=== PATIENT | male | born 1990 | race Two or more races ===

== ENCOUNTER 2024-06-17 07:57 | Emergency (ER) | payer OTHER, SELFPAY ==
--- NOTE | 2024-06-17 | ECG_ITS ---
Test Reason : S/p heart transplant Blood Pressure : */* mmHG Vent. Rate : 114 BPM Atrial Rate : * BPM P-R Int : * ms QRS Dur : 74 ms QT Int : 330 ms P-R-T Axes : * 39 42 degrees QTcB Int : 454 ms Atrial fibrillation with rapid ventricular response Minimal voltage criteria for LVH, may be normal variant ( Sokolow-Gomez ) Abnormal ECG No previous ECGs available Referred By: Generic ED Physician Electronically Signed By: MALLORIE KAUFFMAN MD
[2024-06-17 08:10] VITALS: BP 136/96; PULSE 78; RESP 16; TEMP 36.4; O2SAT 98; BMI 20.4
[2024-06-17 08:36] LABS: MANUAL DIFF FLAG NO
[2024-06-17 08:39] LABS: Basophils Percent Auto 0.5 % (0-2); Eosinophils Percent Auto 0.5 % (0-4); Hematocrit 48.7 % (42.0-52.0); Hemoglobin 16.8 g/dl (14.0-18.0); Imm Gran Abs Auto 0.01 X10*3/uL (0.00-0.03); Imm Gran Pct Auto 0.3 % (0.0-0.4); Lymphocytes Absolute Auto 1.8 X10*3/uL (1.2-4.9); Lymphocytes Percent Auto 46.6 % (20-40); Mean Corpuscular HGB Conc 34.5 g/dl (31.0-36.0); Mean Corpuscular Hemoglobin 33.4 pg (27.0-33.0); Mean Corpuscular Volume 96.8 fL (80.0-98.0); Mean Platelet Volume 10.4 fL (9.4-12.4); Monocytes Absolute Auto 0.4 X10*3/uL (0.1-1.2); Monocytes Percent Auto 10.9 % (2-11); Neutrophils Absolute Auto 1.6 x10*3/uL (2.0-8.3); Neutrophils Percent Auto 41.2 % (45-73); Platelet Count 188 X10*3/uL (160-400); Red Blood Count 5.03 X10*6/uL (4.60-5.80); Red Cell Distribution Width 11.9 % (11.0-16.0); White Blood Count 3.9 X10*3/uL (4.8-10.8)
[2024-06-17 08:57] LABS: B Type Natriuretic Peptide 26 pg/mL (<100)
[2024-06-17 08:58] LABS: Alanine Aminotransferase 46 U/L (0-40); Albumin Level 4.4 g/dL (3.5-5.0); Anion Gap 11 (12-20); Aspartate Amino Transferase 55 U/L (5-37); Blood Urea Nitrogen 19 mg/dL (9-16); Calcium 9.5 mg/dL (8.4-10.2); Carbon Dioxide 27 mmol/L (22-29); Chloride 104 mmol/L (96-108); Creatinine Clr Calc Pharmacy 73.7; Estimated Glomerular Filt Rate > 60; Glucose Random 92 mg/dL (60-115); Potassium 4.3 mmol/L (3.3-5.1); Sodium 138 mmol/L (135-145); Total Protein 8.5 g/dL (6.5-8.0)
[2024-06-17 08:59] LABS: Troponin-I High Sensitivity < 2.7 ng/L (<3.5-35.0)
--- NOTE | 2024-06-17 09:05 | ED.GENADULT ---
HPI - General Adult General Chief complaint: General Medical Stated complaint: gen med Time Seen by Provider: 06/17/24 09:05 Source: patient and educational interpreter (All interactions with this patient were facilitated with an [facility] [place] Creole educational interpreter) Mode of arrival: ambulatory Limitations: language barrier (All interactions with this patient were facilitated with an [facility] [place] Creole educational interpreter) History of Present Illness ED Provider: Herminia Christian PA-C HPI narrative: Patient is a 34 year old assigned male at with a history of cardiac transplant and mechanical valve placement that occurred in [facility] in 2022, presenting to the emergency department today request a check up on his heart. Patient states that he had a heart transplant 2 years ago in [facility] and also had a mechanical valve placed. Patient states that he has been out of all of his medications for at least a month and he is coming here for refills and a check up of his heart. Patient states that he has not established with a transplant specialist since being in the [facility] [place]. Patient denies any history of irregular heartbeats / rhythms. Patient denies any dizziness, lightheadedness, abdominal pain, nausea, vomiting, fever, chills, blurry vision, double vision, loss of vision, chest pain, difficulty breathing, shortness of breath, back pain, night sweats, pain with urination, increased urinary frequency, increased urinary urgency, blood in his urine or stool, syncope or a near syncopal episode, recent trauma or falls, bowel incontinence, bladder incontinence, or any other complaints at this time. Relieving factors: none Exacerbating factors: none Associated symptoms: denies other symptoms Treatments prior to arrival: none Related Data Allergies Allergy/AdvReac Type Severity Reaction Status Date / Time No Known Allergies Allergy Verified 06/17/24 08:14 Review of Systems Constitutional: Constitutional: Reports no additional constitutional complaints, Denies chills, Denies fever(s) and Denies night sweats Eyes: Eyes: Reports no additional eye complaints, Denies blurry vision, Denies change in vision, Denies diplopia, Denies eye discharge, Denies loss of vision and Denies eye pain ENT: Denies dizziness Cardiovascular: Cardiovascular: Reports no additional cardiovascular complaints, Denies chest pain, Denies lightheadedness, Denies Loss of Consciousness and Denies dyspnea Respiratory: Respiratory: Reports no additional respiratory complaints and Denies dyspnea Gastrointestinal: Gastrointestinal: Reports no additional gastrointestinal complaints, Denies abdominal pain, Denies melena, Denies hematochezia, Denies change in bowel habits and Denies change in stool character Genitourinary: Genitourinary: Reports no additional male genitourinary complaints, Denies hematuria, Denies oliguria, Denies difficulty urinating, Denies dysuria, Denies urinary frequency, Denies urinary hesitancy, Denies urinary incontinence and Denies urinary urgency Musculoskeletal: Musculoskeletal: Reports no additional musculoskeletal complaints, Denies numbness and Denies tingling Neurologic: Denies dizziness, Denies loss of vision, Denies numbness and Denies tingling Psychiatric: Psychiatric: Reports no additional psychiatric complaints Endocrine: Endocrine: Reports no additional endocrine complaints Hematologic/Lymphatic: Hematologic/Lymphatic: Reports no additional hematologic/lymphatic complaints Allergic/Immunologic: Allergic/Immunologic: Reports no additional allergic/immunologic complaints [facility] Past Medical History Attestation statement: The following information was validated with the patient. Source: old records reviewed and nursing notes reviewed Social History Social History Advance Directives: No Advance Directives Information Provided: No Do you have a plan to hurt others: No Plan Physical Exam ED Vital Signs: Vital Signs - 24 hr 06/17/24 08:10 06/17/24 12:20 Temperature 97.5 F 98.3 F Pulse Rate 78 105 H Respiratory Rate 16 19 Blood Pressure 136/96 H 117/84 Pulse Oximetry 98 100 Oxygen Delivery Method Room Air Room Air BMI result Body Mass Index 20.4 Const General: cooperative, no acute distress, alert and awake Nutritional Appearance: well nourished Orientation/consciousness: patient oriented x3 Limitations: no limitations [facility] Head: Yes normal to inspection and Yes atraumatic Ears: hearing grossly normal bilaterally and external ears normal General nose exam: Normal external nose present, no nasal discharge noted and no epistaxis Face and sinus: Yes normal facial exam, No abrasion and No laceration Mouth: Normal oral and palatal mucosa present, no drooling and no muffled voice Eyes General: appearance normal, both eyes and all related structures Periorbital: periorbital findings normal Eyelids: Yes eyelids normal Conjunctivae: conjunctivae normal Pupils: Equal, round and reactive pupils present EOM: EOMs intact bilaterally Neck Neck: Yes normal visual inspection, Yes full ROM and Yes no lymphadenopathy Chest Other: large scar in center chest - presumably from transplant Resp Effort & Inspection: normal respiratory effort and able to speak in complete sentences Cardio Other: mechanical valve clicking Rhythm: abnormal rhythm irregularly irregular GI Inspection: Yes normal to inspection Neuro General: patient oriented x3 and moves all extremities Cranial nerves: Yes Equal, round and reactive pupils present Cognition (Neuro): normal cognition Extrem General: Yes normal to inspection, Yes full ROM and Yes capillary refill normal Psych Appearance: grossly normal Mental Status: mental status grossly normal Affect: normal affect Attitude: cooperative Thought process: Normal thought process present Thought content: Normal thought content present Insight: Good insight present (Psych) Medical Decision Making Medical Decision Making MDM Narrative: Patient is a 34 year old assigned male at with a history of cardiac transplant and mechanical valve placement that occurred in [facility] in 2022, presenting to the emergency department today request a check up on his heart. Patient's physical exam was as noted in the physical exam portion of this note. Patient's blood work was unremarkable. Patient's initial EKG showed atrial fibrillation with RVR however, the patient's heart rate has since been stable under 100bpm. I spoke with my attending physician, Dr. Cuadra, who recommended transfer to a transplant center. I called and spoke to the [facility] transfer line who declined. I spoke to [facility] who accepted the patient to their ER. Dr. Rita Bullock accepting. I explained my physical exam findings as well as all test results to the patient. I answered all questions asked by the patient. Patient verbalized agreement and understanding with this treatment plan and transfer to [facility] ED. Differential Diagnosis Differential Diagnoses: The differential diagnosis associated with the presentation includes Heart transplant Medication non-compliance New atrial fibrillation New atrial fibrillation with RVR Admission/Observation Consideration of admission/observation: Escalation of care including admission/observation considered Patient to be transferred to the [facility] ER. Consult Healthcare Provider Management of the patient was discussed with: Pulp Tester (spoke to the [facility] Cardiac team as noted in the MDM Rationale portion of this note.) Lab Data [facility] Lab Attestation statement: I reviewed the patient's lab results. My interpretation of these results are in the MDM Rationale portion of this note. 06/17/24 08:31 06/17/24 08:31 Labs: Lab Results 06/17/24 Range/Units 08:31 WBC 3.9 L (4.8-10.8) X10*3/uL RBC 5.03 (4.60-5.80) X10*6/uL Hgb 16.8 (14.0-18.0) g/dl Hct 48.7 (42.0-52.0) % MCV 96.8 (80.0-98.0) fL MCH 33.4 H (27.0-33.0) pg MCHC 34.5 (31.0-36.0) g/dl RDW 11.9 (11.0-16.0) % Plt Count 188 (160-400) X10*3/uL MPV 10.4 (9.4-12.4) fL Immature Gran % (Auto) 0.3 (0.0-0.4) % Neut % (Auto) 41.2 L (45-73) % Lymph % (Auto) 46.6 H (20-40) % [place] % (Auto) 10.9 (2-11) % Eos % (Auto) 0.5 (0-4) % Baso % (Auto) 0.5 (0-2) % Lymph # (Auto) 1.8 (1.2-4.9) X10*3/uL [place] # (Auto) 0.4 (0.1-1.2) X10*3/uL Eos # (Auto) 0.0 (0.0-0.4) X10*3/uL Baso # (Auto) 0.0 (0.0-0.2) X10*3/uL Abs Immat Gran (auto) 0.01 (0.00-0.03) X10*3/uL Absolute Neuts (auto) 1.6 L (2.0-8.3) x10*3/uL Absolute Nucleated RBC 0.000 (0.0-0.012) X10*3/uL Nucleated RBC % (auto) 0.0 (0.0-0.2) /100WBC Sodium 138 (135-145) mmol/L Potassium 4.3 (3.3-5.1) mmol/L Chloride 104 (96-108) mmol/L Carbon Dioxide 27 (22-29) mmol/L Anion Gap 11 L (12-20) BUN 19 H (9-16) mg/dL Creatinine 1.05 (0.5-1.4) mg/dL Estim Creat Clear Calc 73.7 Estimated GFR > 60 Random Glucose 92 (60-115) mg/dL Calcium 9.5 (8.4-10.2) mg/dL Total Bilirubin 2.0 H (0.0-1.0) mg/dL AST 55 H (5-37) U/L ALT 46 H (0-40) U/L Troponin I High Sens < 2.7 (<3.5-35.0) ng/L B-Natriuretic Peptide 26 (<100) pg/mL Total Protein 8.5 H (6.5-8.0) g/dL Albumin 4.4 (3.5-5.0) g/dL Independent Interpretation I performed an independent interpretation of an: EKG Interpretation: I independently interpreted this EKG and am in agreement with the below findings: Vent. Rate: 114 BPM Atrial Rate: * BPM P-R Int: * ms QRS Dur: 74 ms QT Int: 330 ms P-R-T Axes: * 39 42 degrees QTcB Int: 454 ms Atrial fibrillation with rapid ventricular response Minimal voltage criteria for LVH, may be normal variant (Sokolow-Gomez) No previous ECGs available Electronically Signed By: UMESH KAUFFMAN MD Dictated By: Umesh Kauffman MD Signed By: Electronically signed by Umesh Kauffman MD 06/17/24 1058 Critical Care Time Critical Care Time Critical Care Time: Yes Total Critical Care Time: 38 Attestation: I spent 38 minutes of Critical Care Time with this patient. This does not include time spent on separately reported billable procedures. Discharge Plan Discharge Clinical Impression: Atrial fibrillation, Heart transplant recipient Patient Disposition: Xfer Acute [facility] Transfer Details: [facility] ER Print Language: Moz[place]
[2024-06-17 12:20] VITALS: BP 117/84; PULSE 105; RESP 19; TEMP 36.8; O2SAT 100
--- NOTE | 2024-06-17 12:49 | PC.NURSE ---
pt is alert and oriented, skin appropriate for ethnicity, respirations even and unlabored, pt denies pain, pt is currently in a-fib ranging from 105-122 at this time, no hx of a-fib, pt did have a heart transplant 2 years ago in [place] and just moved over to the [facility] and has no follow up
[2024-06-17 13:03] VITALS: PULSE 100
--- NOTE | 2024-06-17 13:40 | PC.NURSE ---
report given to ela at [facility]
[2024-06-17 13:47] VITALS: BP 117/58; PULSE 100; RESP 20; TEMP -17.7; TEMP 0; O2SAT 98
[2024-06-17 14:08] LABS: Alkaline Phosphatase 85 U/L (39-117)
== END 2024-06-17 13:49 | disposition short-term general hospital (02) ==
PROVIDERS: Emergency Provider Emergency Medicine
DX: I48.91 Unspecified atrial fibrillation (principal); R06.02 Shortness of breath; Z79.899 Other long term (current) drug therapy; Z94.1 Heart transplant status
CPT/HCPCS: 36415; 80053; 83880; 84484; 85025; 93005; 99285

== ENCOUNTER → 2024-06-17 08:23 | Outpatient (BNV) | payer OTHER, SELFPAY | PROVIDERS: Emergency Provider Emergency Medicine; Visit Provider Internal Medicine Cardiovascular Disease | DX: I48.91 Unspecified atrial fibrillation (principal) | CPT/HCPCS: 93010 ==

== ENCOUNTER 2024-09-19 15:11 | Outpatient (AMB) | payer OTHER, SELFPAY ==
--- NOTE | 2024-09-19 15:18 | A.OFFPC_ITS ---
Vital Signs 09/19/24 15:23 Height 5 ft 3 in Weight 121 lb BMI 21.4 BP 122/82 Blood Pressure Location Lt brachial Position Sitting Pulse 61 Pulse Source Pulse Oximeter Pulse Oximetry (%) 99 Oxygen Delivery Method Room Air Intake Visit Reasons: Establish care Intake Note: Patient is a new patient here to establish care for [symptoms]. Transferring ca re from [provider name]. Medical records [have/have not] been requested and [ have/have not] received. Condominium Association Manager Required: Yes Condominium Association Manager Language: Icelandic Creole Condominium Association Manager Name: [id number] Hot Die Press Feeder: Not Required per policy Accompanied by: Self / Same As Patient Allergies No Known Allergies Allergy (Verified 09/19/24 15:35) Medication List - Last Reconciled 09/19/24 by MICHAEL Smith aspirin (Adult Low Dose Aspirin) 81 mg PO DAILY metoprolol tartrate 50 mg PO DAILY spironolactone 25 mg PO DAILY warfarin 6 mg PO DAILY warfarin 4 mg PO DAILY Tobacco use date assessed: 09/19/24 Dental Screening Dental Screen Date: 09/19/24 Did you have a dental visit in the last 12 months?: No Did you have a dental problem in the last 6 months where you did not have access to dental care?: No Was dental information given to patient?: No HPI Establish care HPI Details The patient is presenting to establish care, Ruby Alberto speaking. Condominium Association Manager used via IPAD Previous PCP: no Last visit: unsure Last PE: same Specialist: emergency nurse,(in [facility], he is not sure of the name) OBGYN:n/a Past medical history: Valve replacement when he was a child in [facility] Medications: Family HX: no Problem: The patient reports that he as sent here, but he is not sure why Reports that he had an headache, got some medication and after that he was feeling well The patient is a 34-year-old male presenting with atrial fibrillation. He has hypertension and uses Coumadin for anticoagulation therapy resulting from a heart valve replacement. The patient mentions he is aware of the risk of clotting and the purpose of Coumadin in preventing such complications. He confirms his latest blood work was conducted one week ago to monitor the anticoagulation therapy. He denies experiencing chest pain, dizziness, or joint pain, which might complicate his current conditions. The patient continues on Metoprolol and spironolactone to manage his hypertension, with refills available. The patient thinks that he was sent for possible a general exam. Reports he had an x-ray last Thursday but not sure for what doctor or for what reason He thinks that it was probably for the heart doctor Patient denies shortness of breath, chest pain, heart palpitation Denies abdominal pain or change in bowel habits, denies urinary symptoms PFSH Medical History Atrial fibrillation Surgical History Mechanical heart valve present Family History Mother No problems noted. Father No problems noted. Brother No problems noted. Sister No problems noted. Daughter No problems noted. Social History Housing: Homeless (Skilled Nursing) Alcohol intake: never Patient Tobacco Use Status: Never used Tobacco Tobacco use type: Cigarette e-Cigarette/Vaping Use: Never Used Second Hand Smoke Exposure: No service: No Current occupational status: unemployed Current occupational exposures/hazards: No Cognitive needs: No Hearing needs: No Vision needs: No Questionnaire PHQ-9 Over the last 2 weeks, how often have you been bothered by any of the following problems? 1. Little interest or pleasure in doing things: several days 2. Feeling down, depressed, or hopeless: not at all 3. Trouble falling or staying asleep, or sleeping too much: more than half the days 4. Feeling tired or having little energy: not at all 5. Poor appetite or overeating: not at all 6. Feeling bad about yourself - or that you are a failure or have let yourself or your family down: not at all 7. Trouble concentrating on things, such as reading the newspaper or watching television: not at all 8. Moving or speaking so slowly that other people could have noticed. Or the opposite - being so fidgety or restless that you have been moving around a lot more than usual: not at all 9. Thoughts that you would be better off or of hurting yourself in some way: not at all Total score: 3 Depression Screening Interpretation: Positive Depression Screening Done: Yes 45188 - PHQ-9 Billing: Yes Source: Developed by Drs. Feliciano Lopes, Ninfa Osorio, Niko Smith and colleagues, with an educational lourdes from [employer]. Thrive Questionnaire Date Thrive assessed: 09/19/24 I am a: Patient What is your living situation today?: I do not have a steady places to live I am staying at a detention Within the past 12 months, did the food you bought not last and you didn't have the money to get more?: I choose not to answer this question Within the past 12 months, did you worry whether your food would run out before you got money to buy more?: I choose not to answer this question Do you have trouble paying for medicines?: No Do you have trouble getting transportation to medical appointments?: No Do you have trouble paying your heating and electricity bill?: I choose not to answer this question Do you have trouble taking care of your child, family member or friend?: I choose not to answer this question Do you have trouble with day-to-day activities such as bathing, preparing meals, shopping, managing finances, etc.?: No Are you currently unemployed and looking for a job?: Yes Are you interested in more education?: Yes Please select the resources that you would like help with: Job search/training Currently or been in a relationship where the following occur: I choose not to answer THRIVE Score: 1 AUDIT C Alcohol Use Questionnaire (AUDIT-C) 1. How often do you have a drink containing alcohol?: Never Total Score: 0 REN-7 AMB Questionnaire REN-7 Date REN - 7 assessed: 09/19/24 Feeling nervous, anxious, or on edge: 0 = Not at all Not being able to stop or control worryin = Not at all Worrying too much about different things: 0 = Not at all Trouble relaxin = Not at all Being so restless that it is hard to sit still: 0 = Not at all Becoming easily annoyed or irritable: 0 = Not at all Feeling afraid as if something awful might happen: 0 = Not at all Total REN-7 score (0-4 normal; 5-9 mild; 10-14 moderate; 15-21 severe): 0 Source: Developed by Drs. Feliciano Lopes, Ninfa Osorio, Niko Smith and colleagues, with an educational lourdes from [employer]. REN-7 Assessment Billing REN-7 Assessment Tool: REN-7 Assessment 46053 Review of Systems Const Reports headache(s) (Reports taking medications and this resolved) Eyes Denies loss of vision ENT Denies vertigo, Denies dizziness, Reports headache(s) (Reports taking medications and this resolved) and Denies sore throat Card Denies chest pain, Reports irregular heart rhythm, Denies leg edema and Denies lightheadedness Resp Denies cough, Denies hemoptysis and Denies wheezing GI Denies abdominal pain, Denies melena, Denies constipation, Denies diarrhea and Denies vomiting Denies dysuria, Denies urinary frequency and Denies urinary urgency Musc Denies arthralgias, Denies joint swelling, Denies numbness and Denies tingling Neuro Denies Abnormal speech present, Denies behavioral changes, Denies vertigo, Denies dizziness, Reports headache(s) (Reports taking medications and this resolved), Denies loss of vision, Denies memory loss, Denies numbness and Denies tingling Psych Denies anxiety, Denies behavioral changes, Denies depression, Denies memory loss and Denies panic attacks Nikita/Lymph Reports easy bleeding (Coumadin usage) and Denies easy bruising Aller/Immun Denies wheezing Physical exam (Primary Care) Vital Signs: Last Vital Signs Pulse 61 09/19/24 15:23 BP 122/82 09/19/24 15:23 Pulse Ox 99 09/19/24 15:23 Oxygen Delivery Method Room Air 09/19/24 15:23 BMI result Body Mass Index 21.4 Tobacco/Smoking Status: Tobacco use Status Tobacco use date assessed 09/19/24 09/19/24 15:32 Patient Tobacco Use Status Never used Tobacco 09/19/24 15:32 Tobacco use type Cigarette 09/19/24 15:32 e-Cigarette/Vaping Use Never Used 09/19/24 15:32 PHQ-9: PHQ-9 Score PHQ-9: Total score 3 09/20/24 12:20 Depression Screening Interpretation: Positive Thrive Assessment: Date of Thrive Assessment Date Thrive assessed 09/19/24 09/19/24 15:32 Currently or been in a relationship where the following occur: I choose not to answer Const General: healthy appearing, no acute distress, alert and awake Nutritional Appearance: well nourished Orientation/consciousness: oriented to person, oriented to place and oriented to time HENMT Ears: TM's normal bilaterally General nose exam: Normal nasal mucous membranes and turbinates present Eyes Conjunctivae: conjunctivae normal Sclerae: sclerae normal Pupils: Equal, round and reactive pupils present Neck Neck: Yes no lymphadenopathy and Yes no JVD Thyroid: Thyroid normal Carotids: no bruits Resp Effort & Inspection: normal respiratory effort and not tachypneic Auscultation: no crackles, no rales, no rhonchi and no wheezes Cardio Rate: regular rate Rhythm: abnormal rhythm irregularly irregular Heart sounds: no murmurs and normal S1 and S2 GI Palpation (GI): Soft to palpation, nontender, no hepatomegaly and no splenomegaly Auscultation: normal bowel sounds Skin General skin exam: no rashes or lesions noted and dry skin Hair: male pattern alopecia Neuro General: oriented to person, oriented to place and oriented to time Cranial nerves: Yes Equal, round and reactive pupils present Speech: No Abnormal speech present Gait exam (Neuro): Normal gait present Motor exam (neuro): no tremor noted Extrem Right upper extremity: full ROM Left upper extremity: full ROM Right lower extremity: full ROM; no edema Left lower extremity: full ROM; no edema Psych Mental Status: mental status grossly normal Speech and movement: Normal speech and movement present Affect: normal affect Attitude: cooperative Thought process: Normal thought process present Coding Level of Care Code New Pt Level 4 (06205) Diagnoses Atrial fibrillation, unspecified type I48.91 Atrial fibrillation type: unspecified Mechanical heart valve present Z95.2 Hypertension, unspecified type I10 Hypertension type: unspecified Additional Codes REN-7 Assessment Billing - REN-7 Assessment Tool: REN-7 Assessment 26932 ([id number]) PHQ-9 - 33257 - PHQ-9 Billing: Yes ([id number]) Time Spent (min) 43 Assessment & Plan Assessment & Plan (1) Atrial fibrillation: Code(s): I48.91 - Unspecified atrial fibrillation Category: Medical Qualifiers: Atrial fibrillation type: unspecified Qualified Code(s): I48.91 - Unspecified atrial fibrillation (2) Mechanical heart valve present: Code(s): Z95.2 - Presence of prosthetic heart valve Category: Surgical (3) HTN (hypertension): Code(s): I10 - Essential (primary) hypertension Category: Medical Qualifiers: Hypertension type: unspecified Qualified Code(s): I10 - Essential (primary) hypertension Plan The patient should continue his current Coumadin therapy for anticoagulation, ensuring regular INR monitoring to prevent complications associated with his heart valve condition. Avoid green leafy vegetables, possible interaction with Coumadin. Additionally, Metoprolol and spironolactone should be continued for managing his hypertension. Encouraged low-salt diet. The importance of medication adherence was discussed, with a focus on potential side effects and when to seek further medical attention. Upcoming blood work should include fasting tests to evaluate cholesterol among other parameters. And and Patient was informed and verbally consented to the use of an ambient scribe for clinic note documentation during this visit. Orders: Orders UA CC w/rflx Micro + Cult 09/19/24 I48.91 - Unspecified atrial fibrillation, Z00.00 - Encounter for general adult medical examination without abnormal findings Vitamin D 25-OH Total 09/19/24 I48.91 - Unspecified atrial fibrillation, Z00.00 - Encounter for general adult medical examination without abnormal findings Glucose Fasting 09/19/24 I48.91 - Unspecified atrial fibrillation, Z00.00 - Encounter for general adult medical examination without abnormal findings B Type Natriuretic Peptide 09/19/24 I48.91 - Unspecified atrial fibrillation, Z00.00 - Encounter for general adult medical examination without abnormal findings Complete Blood Count Auto Diff 09/19/24 I48.91 - Unspecified atrial fibrillation, Z00.00 - Encounter for general adult medical examination without abnormal findings Comprehensive Winder. Panel Fast 09/19/24 I48.91 - Unspecified atrial fibrillation, Z00.00 - Encounter for general adult medical examination without abnormal findings TSH reflex Free T4 09/19/24 I48.91 - Unspecified atrial fibrillation, Z00.00 - Encounter for general adult medical examination without abnormal findings Patient Instructions: - Continue taking Coumadin daily as directed - Maintain regular INR testing for medication monitoring - Keep taking Metoprolol and spironolactone for blood pressure control - Schedule fasting blood tests for cholesterol levels - Seek prompt care if experiencing unusual bleeding or prolonged heart palpitations - Follow up in 6 weeks to review lab results and progress
[2024-09-19 15:23] VITALS: BP 122/82; PULSE 61; O2SAT 99; BMI 21.4
== END 2024-09-19 16:12 | disposition home or self-care (01) ==
LOC: HO.HMCH 15:11
DX: I48.91 Unspecified atrial fibrillation (principal); Z95.2 Presence of prosthetic heart valve; I10 Essential (primary) hypertension

== ENCOUNTER → 2024-09-19 15:11 | Outpatient (BNVA) | payer OTHER, SELFPAY | DX: I48.91 Unspecified atrial fibrillation (principal); I10 Essential (primary) hypertension; Z95.2 Presence of prosthetic heart valve; Z79.01 Long term (current) use of anticoagulants; Z79.899 Other long term (current) drug therapy | CPT/HCPCS: 96127; 99202 ==

== ENCOUNTER 2024-11-08 09:52 | Outpatient (AMB) | payer OTHER, SELFPAY ==
--- NOTE | 2024-11-08 09:55 | A.OFFPC_ITS ---
Vital Signs 11/08/24 09:57 Height 5 ft 3 in Weight 119 lb 12.8 oz BMI 21.2 BP 114/86 Blood Pressure Location Lt brachial Position Sitting Respiration 16 Pulse 108 H Pulse Source Pulse Oximeter Temp 97.6 F Temp Source Oral Pulse Oximetry (%) 99 Oxygen Delivery Method Room Air Intake Visit Reasons: 6 week f/u- repeat PHQ9 W/ provider interpretation Principal Statistical Programmer Required: Yes Principal Statistical Programmer Language: Icelandic Creole Principal Statistical Programmer Name: Used tablet: Samuel [id number] Accompanied by: Spouse Allergies No Known Allergies Allergy (Verified 11/08/24 10:12) Medication List - Last Reconciled 11/08/24 by MICHAEL Smith aspirin (Adult Low Dose Aspirin) 81 mg PO DAILY metoprolol tartrate 50 mg (2 x 25 mg) PO DAILY spironolactone 25 mg PO DAILY warfarin 6 mg PO DAILY warfarin 4 mg PO DAILY Tobacco use date assessed: 11/08/24 Dental Screening Dental Screen Date: 11/08/24 Did you have a dental visit in the last 12 months?: Yes Did you have a dental problem in the last 6 months where you did not have access to dental care?: No Was dental information given to patient?: Patient has dentist HPI 6 week f/u- repeat PHQ9 W/ provider interpretation HPI Details The patient 34 male Icelandic Creole speaking with significant past medical history of mechanical heart valve, HTN, afib on Coumadin. Second time meeting the patient. Labs were ordered on his 1st visit to further evaluate The patient did not complete the blood work as yet. Reports that he was not sure when this was supposed to get done Reports that he was going to the coumadin clinic every 2 weeks, now, he is going every 3 weeks Denies chest pain, SOB, heart palpitation or dizziness No abdominal pain or change in bowel habits Denies urinary symptoms [facility] Medical History (Updated 11/25/24 @ 22:42 by MICHAEL Smith) Non-ischemic cardiomyopathy HTN (hypertension) Atrial fibrillation Surgical History Mechanical heart valve present Family History Mother No problems noted. Father No problems noted. Brother No problems noted. Sister No problems noted. Daughter No problems noted. Social History Housing: Homeless (Penitentiary) Alcohol intake: never Patient Tobacco Use Status: Never used Tobacco Tobacco use type: Cigarette e-Cigarette/Vaping Use: Never Used Second Hand Smoke Exposure: No service: No Current occupational status: unemployed Current occupational exposures/hazards: No Cognitive needs: No Hearing needs: No Vision needs: No Questionnaire PHQ-9 Over the last 2 weeks, how often have you been bothered by any of the following problems? 1. Little interest or pleasure in doing things: not at all 2. Feeling down, depressed, or hopeless: not at all 3. Trouble falling or staying asleep, or sleeping too much: nearly every day 4. Feeling tired or having little energy: more than half the days 5. Poor appetite or overeating: not at all 6. Feeling bad about yourself - or that you are a failure or have let yourself or your family down: not at all 7. Trouble concentrating on things, such as reading the newspaper or watching television: not at all 8. Moving or speaking so slowly that other people could have noticed. Or the opposite - being so fidgety or restless that you have been moving around a lot more than usual: not at all 9. Thoughts that you would be better off or of hurting yourself in some way: not at all Total score: 5 Depression Screening Interpretation: Negative Depression Screening Done: Yes 77411 - PHQ-9 Billing: Yes Source: Developed by Drs. Feliciano Lopes, Ninfa Osorio, Niko Smith and colleagues, with an educational lourdes from [email or web address]. Thrive Questionnaire Date Thrive assessed: 11/08/24 I am a: Patient What is your living situation today?: I do not have a steady places to live I am staying at a fci Within the past 12 months, did the food you bought not last and you didn't have the money to get more?: I choose not to answer this question Within the past 12 months, did you worry whether your food would run out before you got money to buy more?: I choose not to answer this question Do you have trouble paying for medicines?: No Do you have trouble getting transportation to medical appointments?: No Do you have trouble paying your heating and electricity bill?: I choose not to answer this question Do you have trouble taking care of your child, family member or friend?: I choose not to answer this question Do you have trouble with day-to-day activities such as bathing, preparing meals, shopping, managing finances, etc.?: No Are you currently unemployed and looking for a job?: Yes Are you interested in more education?: Yes Please select the resources that you would like help with: Job search/training Currently or been in a relationship where the following occur: I choose not to answer THRIVE Score: 1 AUDIT C Alcohol Use Questionnaire (AUDIT-C) 1. How often do you have a drink containing alcohol?: Never Total Score: 0 Score Reviewed/Action Taken: No REN-7 AMB Questionnaire REN-7 Date REN - 7 assessed: 09/19/24 Source: Developed by Drs. Feliciano Lopes, Ninfa Osorio, Niko Smith and colleagues, with an educational lourdes from [email or web address]. Review of Systems Const Denies headache(s) Eyes Denies loss of vision ENT Denies vertigo, Denies dizziness, Denies headache(s) and Denies sore throat Card Denies chest pain, Denies leg edema and Denies lightheadedness Resp Denies cough, Denies hemoptysis and Denies wheezing GI Denies abdominal pain, Denies melena, Reports constipation (going every 2-3 days), Denies diarrhea and Denies vomiting Denies dysuria, Denies urinary frequency and Denies urinary urgency Musc Denies arthralgias, Denies joint swelling, Denies numbness and Denies tingling Neuro Denies Abnormal speech present, Denies behavioral changes, Denies vertigo, Denies dizziness, Denies headache(s), Denies loss of vision, Denies memory loss, Denies numbness and Denies tingling Psych Denies anxiety, Denies behavioral changes, Denies depression, Denies memory loss and Denies panic attacks Nikita/Lymph Denies easy bleeding and Denies easy bruising Aller/Immun Denies wheezing Physical exam (Primary Care) Vital Signs: Last Vital Signs Temp 97.6 F 11/08/24 09:57 Pulse 108 H 11/08/24 09:57 Resp 16 11/08/24 09:57 BP 114/86 11/08/24 09:57 Pulse Ox 99 11/08/24 09:57 Oxygen Delivery Method Room Air 11/08/24 09:57 BMI result Body Mass Index 21.2 Tobacco/Smoking Status: Tobacco use Status Tobacco use date assessed 11/08/24 11/08/24 10:10 Patient Tobacco Use Status Never used Tobacco 11/08/24 10:10 Tobacco use type Cigarette 11/08/24 10:10 e-Cigarette/Vaping Use Never Used 11/08/24 10:10 PHQ-9: PHQ-9 Score PHQ-9: Total score 5 11/08/24 10:19 Depression Screening Interpretation: Negative Thrive Assessment: Date of Thrive Assessment Date Thrive assessed 11/08/24 11/08/24 10:10 Currently or been in a relationship where the following occur: I choose not to answer Const General: healthy appearing, no acute distress, alert and awake Nutritional Appearance: well nourished Orientation/consciousness: oriented to person, oriented to place and oriented to time HENMT Ears: TM's normal bilaterally General nose exam: Normal nasal mucous membranes and turbinates present Eyes Conjunctivae: conjunctivae normal Sclerae: sclerae normal Pupils: Equal, round and reactive pupils present Neck Neck: Yes no lymphadenopathy and Yes no JVD Thyroid: Thyroid normal Carotids: no bruits Resp Effort & Inspection: normal respiratory effort and not tachypneic Auscultation: no crackles, no rales, no rhonchi and no wheezes Cardio Rate: tachycardic Rhythm: abnormal rhythm regularly irregular Heart sounds: no murmurs and normal S1 and S2 GI Palpation (GI): Soft to palpation, nontender, no hepatomegaly and no splenomegaly Auscultation: normal bowel sounds Skin General skin exam: no rashes or lesions noted and dry skin Neuro General: oriented to person, oriented to place and oriented to time Cranial nerves: Yes Equal, round and reactive pupils present Speech: No Abnormal speech present Gait exam (Neuro): Normal gait present Motor exam (neuro): no tremor noted Extrem Right upper extremity: full ROM Left upper extremity: full ROM Right lower extremity: full ROM; no edema Left lower extremity: full ROM; no edema Psych Mental Status: mental status grossly normal Speech and movement: Normal speech and movement present Affect: normal affect Attitude: cooperative Thought process: Normal thought process present Coding Level of Care Code Est Pt Level 3 (49048) Diagnoses Atrial fibrillation, unspecified type I48.91 Atrial fibrillation type: unspecified Mechanical heart valve present Z95.2 Hypertension, unspecified type I10 Hypertension type: unspecified Non-ischemic cardiomyopathy I42.8 Elevated liver enzymes R74.8 Additional Codes PHQ-9 - 26753 - PHQ-9 Billing: Yes ([id number]) Time Spent (min) 37 Assessment & Plan Assessment & Plan (1) Atrial fibrillation: Code(s): I48.91 - Unspecified atrial fibrillation Category: Medical Qualifiers: Atrial fibrillation type: unspecified Qualified Code(s): I48.91 - Unspecified atrial fibrillation Plan: Patient has a history of AFib. Rate uncontrolled, but blood pressure is 114/86. He is currently on metoprolol tartrate 50 mg. The patient is asymptomatic. No interventions added. Follow up with Cardiology as scheduled (2) Mechanical heart valve present: Code(s): Z95.2 - Presence of prosthetic heart valve Category: Surgical Plan: History of mechanical valve. Continue warfarin as ordered Follow up with Coumadin clinic as scheduled (3) HTN (hypertension): Code(s): I10 - Essential (primary) hypertension Category: Medical Qualifiers: Hypertension type: unspecified Qualified Code(s): I10 - Essential (primary) hypertension Plan: Reinforced low-salt diet Continue metoprolol tartrate 50 mg daily, spironolactone 25 mg daily (4) Non-ischemic cardiomyopathy: Code(s): I42.8 - Other cardiomyopathies Category: Medical Plan: Recent echo showed normal function mitral valve with mean gradient 3 mm Hg at 75 bpm with no evidence of MR. Moderate global hypokinesis of the left ventricle with LVEF of 35-40% Continue spironolactone 25 mg daily and metoprolol tartrate 50 mg daily Follow up with Cardiology as scheduled (5) Elevated liver enzymes: Code(s): R74.8 - Abnormal levels of other serum enzymes Category: Medical Plan: Patient liver enzymes were elevated on his previous labs in May. He has not completed his preordered labs as yet. Encouraged limit Tylenol/limit alcohol/use
[2024-11-08 09:57] VITALS: BP 114/86; PULSE 108; RESP 16; TEMP 36.4; O2SAT 99; BMI 21.2
== END 2024-11-08 10:30 | disposition home or self-care (01) ==
LOC: HO.HMCH 09:53
DX: I48.91 Unspecified atrial fibrillation (principal); Z95.2 Presence of prosthetic heart valve; I10 Essential (primary) hypertension; I42.8 Other cardiomyopathies; R74.8 Abnormal levels of other serum enzymes

== ENCOUNTER → 2024-11-08 09:52 | Outpatient (BNVA) | payer OTHER, SELFPAY | DX: I10 Essential (primary) hypertension (principal); I48.91 Unspecified atrial fibrillation; I42.8 Other cardiomyopathies; R74.8 Abnormal levels of other serum enzymes; Z95.2 Presence of prosthetic heart valve; Z79.01 Long term (current) use of anticoagulants | CPT/HCPCS: 96127; 99212 ==

== ENCOUNTER 2024-12-16 05:42 | Emergency (ER) | payer OTHER, SELFPAY ==
[2024-12-16 05:53] VITALS: BP 125/84; PULSE 94; RESP 16; TEMP 36.5; O2SAT 100; BMI 18.9
--- NOTE | 2024-12-16 06:35 | PC.NURSE ---
Pt aox4, Lithuanian Creole speaking, video straw hat presser utilized. Pt reports itchy poking sensation throughout the body x 1 wk. Denies any rash. No new body products used. Pt reports foul smelling urine. Urine sample collected and sent. Pending physician christopheral.
[2024-12-16 06:50] LABS: Appearance Urine Clear; Glucose Urine UA Negative (Negative); PH 5.5 (5.0-9.0); Specific Gravity - Urine 1.015 (1.005-1.025)
[2024-12-16 06:59] LABS: MANUAL DIFF FLAG NO
[2024-12-16 07:03] LABS: Hematocrit 42.2 % (42.0-52.0); Hemoglobin 14.4 g/dl (14.0-18.0); Imm Gran Abs Auto 0.01 X10*3/uL (0.00-0.03); Imm Gran Pct Auto 0.2 % (0.0-0.4); Lymphocytes Absolute Auto 1.4 X10*3/uL (1.2-4.9); Mean Corpuscular HGB Conc 34.1 g/dl (31.0-36.0); Mean Corpuscular Hemoglobin 32.1 pg (27.0-33.0); Mean Corpuscular Volume 94.2 fL (80.0-98.0); NRBC Abs Auto 0.000 X10*3/uL (0.0-0.012); NRBC Pct Auto 0.0 /100WBC (0.0-0.2); Platelet Count 268 X10*3/uL (160-400); Red Blood Count 4.48 X10*6/uL (4.60-5.80); White Blood Count 4.5 X10*3/uL (4.8-10.8)
[2024-12-16 07:12] LABS: Other Crystals Urine Present
[2024-12-16 07:15] LABS: Alanine Aminotransferase 22 U/L (0-40); Albumin Level 4.7 g/dL (3.5-5.0); Alkaline Phosphatase 88 U/L (39-117); Anion Gap 15 (12-20); Aspartate Amino Transferase 36 U/L (5-37); Blood Urea Nitrogen 18 mg/dL (9-16); Calcium 9.8 mg/dL (8.4-10.2); Carbon Dioxide 23 mmol/L (22-29); Chloride 104 mmol/L (96-108); Creatinine Clr Calc Pharmacy 62.8; Estimated Glomerular Filt Rate > 60; Potassium 4.3 mmol/L (3.3-5.1); Sodium 138 mmol/L (135-145); Total Protein 8.4 g/dL (6.5-8.0)
[2024-12-16 07:22] LABS: INTERNATIONAL NORM RATIO 3.8 (0.9-1.1); Prothrombin Time 43.3 SEC (10.9-12.4)
--- NOTE | 2024-12-16 08:16 | ED.GENADULT ---
HPI - General Adult General Chief complaint: General Medical Stated complaint: general medicine Time Seen by Provider: 12/16/24 08:00 Source: patient Mode of arrival: ambulatory Limitations: no limitations History of Present Illness ED Provider: Blanche Yun NP HPI narrative: Patient is a 34-year-old male with past medical history of nonischemic cardiomyopathy, hypertension, atrial fibrillation on warfarin, mechanical heart valve, who presents emergency department for evaluation he reports having a whole-body tingling sensation over the past week that is constant in nature. On further description it seems as though the area becomes itchy, he does admit that he feels the urge to scratch the skin and after scratching the symptoms subside for some time. He denies any allergy type symptoms; rhinorrhea, nasal congestion, cough, watery eyes. He denies any change in his residency or environmental lifestyle exposures. [place] the past 7 [place] without any issue. Denies any changes to his detergent, soap, lotions. No associated chest pain or shortness of breath. No known allergens. Denies any rashes, lesions, bruising. Related Data Home Medications ?Medication ?Instructions ?Recorded ?Confirmed warfarin 4 mg tablet 4 mg PO DAILY 09/19/24 11/08/24 warfarin 6 mg tablet 6 mg PO DAILY 09/19/24 11/08/24 Previous Rx's ?Medication ?Instructions ?Recorded aspirin 81 mg tablet,delayed 81 mg PO DAILY #90 tabs 09/25/24 release (Adult Low Dose Aspirin) metoprolol tartrate 25 mg tablet 50 mg (2 x 25 mg) PO DAILY #90 tabs 09/25/24 spironolactone 25 mg tablet 25 mg PO DAILY #90 tabs 09/25/24 cetirizine 10 mg tablet 10 mg PO DAILY PRN allergy 12/16/24 symptoms #14 tabs Allergies Allergy/AdvReac Type Severity Reaction Status Date / Time No Known Allergies Allergy Verified 12/16/24 06:04 Review of Systems Review of Systems: Yes all other systems are reviewed and are negative PMFSH Past Medical History Attestation statement: The following information was validated with the patient. Source: old records reviewed Medical History Non-ischemic cardiomyopathy HTN (hypertension) Atrial fibrillation Surgical History Mechanical heart valve present Family History Family History Mother No problems noted. Father No problems noted. Brother No problems noted. Sister No problems noted. Daughter No problems noted. Social History Social History Housing: Homeless ([facility]) Alcohol intake: never Patient Tobacco Use Status: Never used Tobacco Tobacco use type: Cigarette Smoked in Last 30 Days: No e-Cigarette/Vaping Use: Never Used Second Hand Smoke Exposure: No Use of substances other than those prescribed or required for medical reasons: No Advance Directives: No service: No Current occupational status: unemployed Current occupational exposures/hazards: No Cognitive needs: No Hearing needs: No Vision needs: No Physical Exam ED Exam Exam: Appearance: Alert.?Oriented to person, place and time. No acute distress.?Normal affect. Eyes: Pupils equal, round and reactive to light.? ENT: Pharynx normal.?? Neck: Normal inspection.? Neck supple.?? CVS: Heart sounds normal. Normal heart rate and rhythm.? Pulses normal.?? Respiratory: No respiratory distress.? Lung sounds clear to auscultation bilaterally?? Abdomen: Soft and non-tender. Normoactive bowel sounds. Skin: Skin warm and dry.? Normal skin color.? No rashes or lesions Extremities: No lower extremity edema.? Neuro: Moves all extremities spontaneously. Sensation intact bilaterally. Ambulates with normal steady gait. Vital Signs: Vital Signs - 24 hr 12/16/24 05:53 12/16/24 10:14 12/16/24 10:16 Temperature 97.7 F 98 F 98 F Pulse Rate 94 78 78 Respiratory Rate 16 19 19 Blood Pressure 125/84 124/78 124/78 Pulse Oximetry 100 98 98 Oxygen Delivery Method Room Air BMI result Body Mass Index 18.9 Medical Decision Making Medical Decision Making MDM Narrative: Patient is a 34-year-old male with past medical history of hypertension, nonischemic cardiomyopathy, atrial fibrillation on warfarin, mechanical heart valve who presents emergency department for evaluation endorsing 1 week of paresthesia versus pruritus as per HPI. Seemingly constant in nature but alleviates after scratching, not particularly worse in anyone area of the body. On examination he has no rashes or lesions, no ecchymosis, no superficial abrasions or wounds are noted. His examination is benign at this time. He had serum labs obtained prior to my assumption of care, CBC reveals a mild leukopenia 4500, no anemia or thrombocytopenia. No electrolyte derangement. No JANE. Has elevated T bili 1.6 which appears consistent with prior labs. INR supratherapeutic at 3.8, which is supratherapeutic, no active bleeding, does not require vitamin K. He does not recall the name of the [facility] of which he follows but it is in [place], from a he is due to have his INR checked on Thursday. He was advised to not taking Coumadin for 2 doses tonight 12/16/2024 as well as tomorrow 12/17/2024, on 12/18/2024 he will resume taking Coumadin 4 mg orally, and have his INR repeated as scheduled on 12/19/2024. Urinalysis is unremarkable. Differential Diagnosis Differential Diagnoses: The differential diagnosis associated with the presentation includes (Paresthesia, pruritus, contact dermatitis, vasculitis) Admission/Observation Consideration of admission/observation: Escalation of care including admission/observation considered Lab Data MDM Lab Attestation statement: I reviewed the patient's lab results. (See narrative above) 12/16/24 06:54 12/16/24 06:55 Labs: Lab Results 12/16/24 12/16/24 12/16/24 Range/Units 06:42 06:54 06:55 WBC 4.5 L (4.8-10.8) X10*3/uL RBC 4.48 L (4.60-5.80) X10*6/uL Hgb 14.4 (14.0-18.0) g/dl Hct 42.2 (42.0-52.0) % MCV 94.2 (80.0-98.0) fL MCH 32.1 (27.0-33.0) pg MCHC 34.1 (31.0-36.0) g/dl RDW 11.8 (11.0-16.0) % Plt Count 268 D (160-400) X10*3/uL MPV 10.0 (9.4-12.4) fL Immature Gran % (Auto) 0.2 (0.0-0.4) % Neut % (Auto) 59.1 (45-73) % Lymph % (Auto) 32.1 (20-40) % [place] % (Auto) 7.2 (2-11) % Eos % (Auto) 0.7 (0-4) % Baso % (Auto) 0.7 (0-2) % Lymph # (Auto) 1.4 (1.2-4.9) X10*3/uL [place] # (Auto) 0.3 (0.1-1.2) X10*3/uL Eos # (Auto) 0.0 (0.0-0.4) X10*3/uL Baso # (Auto) 0.0 (0.0-0.2) X10*3/uL Abs Immat Gran (auto) 0.01 (0.00-0.03) X10*3/uL Absolute Neuts (auto) 2.6 (2.0-8.3) x10*3/uL Absolute Nucleated RBC 0.000 (0.0-0.012) X10*3/uL Nucleated RBC % (auto) 0.0 (0.0-0.2) /100WBC PT 43.3 H (10.9-12.4) SEC INR 3.8 H (0.9-1.1) Sodium 138 (135-145) mmol/L Potassium 4.3 (3.3-5.1) mmol/L Chloride 104 (96-108) mmol/L Carbon Dioxide 23 (22-29) mmol/L Anion Gap 15 (12-20) BUN 18 H (9-16) mg/dL Creatinine 1.15 (0.5-1.4) mg/dL Estim Creat Clear Calc 62.8 Estimated GFR > 60 Random Glucose 85 (60-115) mg/dL Calcium 9.8 (8.4-10.2) mg/dL Total Bilirubin 1.6 H (0.0-1.0) mg/dL Direct Bilirubin 0.5 (0.0-0.5) mg/dL AST 36 (5-37) U/L ALT 22 (0-40) U/L Alkaline Phosphatase 88 (39-117) U/L Total Protein 8.4 H (6.5-8.0) g/dL Albumin 4.7 (3.5-5.0) g/dL Lipase 18 (8-78) U/L TSH 1.71 (0.32-4.0) uIU/mL Urine Color Yellow Urine Appearance Clear Urine pH 5.5 (5.0-9.0) Ur Specific [place] 1.015 (1.005-1.025) Urine Protein Negative (Neg-Trace) mg/dL Urine Glucose (UA) Negative (Negative) mg/dL Urine Ketones Trace (Negative) mg/dL Urine Blood Negative (Negative) Urine Nitrite Negative (Negative) Ur Leukocyte Esterase Negative (Negative) Urine RBC 0-2 (0-2) /HPF Urine WBC 0-5 (0-5) /HPF Ur Squamous Epith Cells 0-2 (0-2) /HPF Other Crystals Present Urine Bacteria None Seen (None Seen) Hyaline Casts 0-2 (0-2) /LPF External Record Review External record reviewed: Outpatient record Chronic Conditions Patient?s care impacted by: Other (See narrative above) Discharge Plan Discharge Clinical Impression: Paresthesia, Supratherapeutic INR Patient Disposition: Home, Self-Care Instructions: Paresthesia (ED) Additional Instructions: You were seen in the emergency department for evaluation of a tingling sensation throughout your body known as a paresthesia, it seems as though this may be pruritus or itching given that the sensation subsides after scratching. It is possible this may be a reaction to something in the environment. I suggest using a nondrowsy antihistamines/allergy medication over the next few days to see if this helps; cetirizine. Contact your primary care provider to arrange for a follow-up visit. Incidentally, you were found to have an INR level today is 3.8 which is above the therapeutic level. I recommend not taking your warfarin for 2 days; today and tomorrow. On Thursday12/18/2024 you should take your warfarin 4 mg tablet, and follow-up with her [facility] on 12/19/2024 to have your INR level repeated Prescriptions: New cetirizine 10 mg tablet 10 mg PO DAILY PRN (Reason: allergy symptoms) Qty: 14 0RF No Action aspirin [Adult Low Dose Aspirin] 81 mg tablet,delayed release (DR/EC) 81 mg PO DAILY Qty: 90 3RF metoprolol tartrate 25 mg tablet 50 mg PO DAILY Qty: 90 3RF spironolactone 25 mg tablet 25 mg PO DAILY Qty: 90 3RF warfarin 4 mg tablet 4 mg PO DAILY warfarin 6 mg tablet 6 mg PO DAILY Referrals: Physician,Unknown J [Primary Care Provider, Medical] Interventions: ED Discharge Assessment Last Done: 12/16/24 10:16 Discharge Date/Time: 12/16/24 10:17 Print Language: Ruby Alberto
[2024-12-16 08:58] LABS: Lipase 18 U/L (8-78)
[2024-12-16 10:14] VITALS: BP 124/78; PULSE 78; RESP 19; TEMP 36.6; O2SAT 98
[2024-12-16 10:16] VITALS: BP 124/78; PULSE 78; RESP 19; TEMP 36.6; O2SAT 98
--- NOTE | 2024-12-19 17:01 | ED.GENADULT ---
HPI - General Adult General Chief complaint: General Medical Stated complaint: general medicine Time Seen by Provider: 12/16/24 08:00 Source: patient Mode of arrival: ambulatory Limitations: no limitations Related Data Home Medications ?Medication ?Instructions ?Recorded ?Confirmed warfarin 4 mg tablet 4 mg PO DAILY 09/19/24 11/08/24 warfarin 6 mg tablet 6 mg PO DAILY 09/19/24 11/08/24 Previous Rx's ?Medication ?Instructions ?Recorded aspirin 81 mg tablet,delayed 81 mg PO DAILY #90 tabs 09/25/24 release (Adult Low Dose Aspirin) metoprolol tartrate 25 mg tablet 50 mg (2 x 25 mg) PO DAILY #90 tabs 09/25/24 spironolactone 25 mg tablet 25 mg PO DAILY #90 tabs 09/25/24 cetirizine 10 mg tablet 10 mg PO DAILY PRN allergy 12/16/24 symptoms #14 tabs Allergies Allergy/AdvReac Type Severity Reaction Status Date / Time No Known Allergies Allergy Verified 12/16/24 06:04 [facility] Past Medical History Medical History Non-ischemic cardiomyopathy HTN (hypertension) Atrial fibrillation Surgical History Mechanical heart valve present Family History Family History Mother No problems noted. Father No problems noted. Brother No problems noted. Sister No problems noted. Daughter No problems noted. Social History Social History Housing: Homeless ([place]) Alcohol intake: never Patient Tobacco Use Status: Never used Tobacco Tobacco use type: Cigarette Smoked in Last 30 Days: No e-Cigarette/Vaping Use: Never Used Second Hand Smoke Exposure: No Use of substances other than those prescribed or required for medical reasons: No Advance Directives: No service: No Current occupational status: unemployed Current occupational exposures/hazards: No Cognitive needs: No Hearing needs: No Vision needs: No Physical Exam ED Vital Signs: BMI result Body Mass Index 18.9 Medical Decision Making Lab Data 12/16/24 06:54 12/16/24 06:55 Labs: Lab Results 12/16/24 12/16/24 12/16/24 Range/Units 06:42 06:54 06:55 WBC 4.5 L (4.8-10.8) X10*3/uL RBC 4.48 L (4.60-5.80) X10*6/uL Hgb 14.4 (14.0-18.0) g/dl Hct 42.2 (42.0-52.0) % MCV 94.2 (80.0-98.0) fL MCH 32.1 (27.0-33.0) pg MCHC 34.1 (31.0-36.0) g/dl RDW 11.8 (11.0-16.0) % Plt Count 268 D (160-400) X10*3/uL MPV 10.0 (9.4-12.4) fL Immature Gran % (Auto) 0.2 (0.0-0.4) % Neut % (Auto) 59.1 (45-73) % Lymph % (Auto) 32.1 (20-40) % [place] % (Auto) 7.2 (2-11) % Eos % (Auto) 0.7 (0-4) % Baso % (Auto) 0.7 (0-2) % Lymph # (Auto) 1.4 (1.2-4.9) X10*3/uL [place] # (Auto) 0.3 (0.1-1.2) X10*3/uL Eos # (Auto) 0.0 (0.0-0.4) X10*3/uL Baso # (Auto) 0.0 (0.0-0.2) X10*3/uL Abs Immat Gran (auto) 0.01 (0.00-0.03) X10*3/uL Absolute Neuts (auto) 2.6 (2.0-8.3) x10*3/uL Absolute Nucleated RBC 0.000 (0.0-0.012) X10*3/uL Nucleated RBC % (auto) 0.0 (0.0-0.2) /100WBC PT 43.3 H (10.9-12.4) SEC INR 3.8 H (0.9-1.1) Sodium 138 (135-145) mmol/L Potassium 4.3 (3.3-5.1) mmol/L Chloride 104 (96-108) mmol/L Carbon Dioxide 23 (22-29) mmol/L Anion Gap 15 (12-20) BUN 18 H (9-16) mg/dL Creatinine 1.15 (0.5-1.4) mg/dL Estim Creat Clear Calc 62.8 Estimated GFR > 60 Random Glucose 85 (60-115) mg/dL Calcium 9.8 (8.4-10.2) mg/dL Total Bilirubin 1.6 H (0.0-1.0) mg/dL Direct Bilirubin 0.5 (0.0-0.5) mg/dL AST 36 (5-37) U/L ALT 22 (0-40) U/L Alkaline Phosphatase 88 (39-117) U/L Total Protein 8.4 H (6.5-8.0) g/dL Albumin 4.7 (3.5-5.0) g/dL Lipase 18 (8-78) U/L TSH 1.71 (0.32-4.0) uIU/mL Urine Color Yellow Urine Appearance Clear Urine pH 5.5 (5.0-9.0) Ur Specific [place] 1.015 (1.005-1.025) Urine Protein Negative (Neg-Trace) mg/dL Urine Glucose (UA) Negative (Negative) mg/dL Urine Ketones Trace (Negative) mg/dL Urine Blood Negative (Negative) Urine Nitrite Negative (Negative) Ur Leukocyte Esterase Negative (Negative) Urine RBC 0-2 (0-2) /HPF Urine WBC 0-5 (0-5) /HPF Ur Squamous Epith Cells 0-2 (0-2) /HPF Other Crystals Present Urine Bacteria None Seen (None Seen) Hyaline Casts 0-2 (0-2) /LPF Radiology Impression Discussion of test interpretation with radiology: I have reviewed the radiologist's reading. Radiologist Impression: US venous duplex LE LT IMPRESSION: Acute deep venous thrombosis interrogated veins, left lower extremity. Negative for DVT. Inguinal lymphadenopathy. Varices, great saphenous vein. Electronically signed by: Boom Mata MD 12/19/2024 02:00 PM Discharge Plan Discharge Clinical Impression: Paresthesia, Supratherapeutic INR Patient Disposition: Home, Self-Care Instructions: Paresthesia (ED) Additional Instructions: You were seen in the emergency department for evaluation of a tingling sensation throughout your body known as a paresthesia, it seems as though this may be pruritus or itching given that the sensation subsides after scratching. It is possible this may be a reaction to something in the environment. I suggest using a nondrowsy antihistamines/allergy medication over the next few days to see if this helps; cetirizine. Contact your primary care provider to arrange for a follow-up visit. Incidentally, you were found to have an INR level today is 3.8 which is above the therapeutic level. I recommend not taking your warfarin for 2 days; today and tomorrow. On Thursday12/18/2024 you should take your warfarin 4 mg tablet, and follow-up with her [facility] on 12/19/2024 to have your INR level repeated Prescriptions: New cetirizine 10 mg tablet 10 mg PO DAILY PRN (Reason: allergy symptoms) Qty: 14 0RF No Action aspirin [Adult Low Dose Aspirin] 81 mg tablet,delayed release (DR/EC) 81 mg PO DAILY Qty: 90 3RF metoprolol tartrate 25 mg tablet 50 mg PO DAILY Qty: 90 3RF spironolactone 25 mg tablet 25 mg PO DAILY Qty: 90 3RF warfarin 4 mg tablet 4 mg PO DAILY warfarin 6 mg tablet 6 mg PO DAILY Referrals: Physician,Unknown J [Primary Care Provider, Medical] Interventions: ED Discharge Assessment Last Done: 12/16/24 10:16 Discharge Date/Time: 12/16/24 10:17 Print Language: Ruby Alberto
== END 2024-12-16 10:17 | disposition home or self-care (01) ==
PROVIDERS: Nurse Practitioner Family; Emergency Provider Emergency Medicine Emergency Medical Services
DX: R20.2 Paresthesia of skin (principal); Z79.899 Other long term (current) drug therapy
CPT/HCPCS: 36415; 80053; 81001; 82248; 83690; 84443; 85025; 85610; 99283; 99284

== ENCOUNTER 2025-02-07 11:48 | Emergency (ER) | payer OTHER, SELFPAY ==
--- NOTE | ~2025-02-07 | CT_ITS ---
CLINICAL HISTORY: mesenteric ischemia rule out CT angiography abdomen and pelvis with contrast. With MIP MPR post processing. Comparison: None provided Findings: Mild bibasilar atelectasis/pneumonitis with air trapping including medial basal segment of the imaged right lower lobe. No dissection flap of the abdominal aorta by CT. Infrarenal abdominal aorta measures 0.5 cm diameter. No significant stenosis of the proximal celiac axis or proximal SMA accounting for motion artifacts. No significant proximal renal artery stenosis accounting for motion artifacts. LY opacifies. Imaged iliacs and imaged femoral arteries are unremarkable for technique and field of view. Calcification versus postprocedural density of the left lower abdominal wall approaching left groin region. Hypervascular nodules nonspecific in the dorsal aspect of the liver medial to IVC (image 16 of series 5) measuring 9 mm. The spleen is nonenlarged. Adrenal glands and pancreas are partly obscured and otherwise unremarkable for CT with artifacts. Gallbladder is unremarkable for CT. Peripheral low-density of the right kidney is nonspecific and may reflect scarring. No hydronephrosis. Small mesenteric lymph nodes are nonspecific and likely reactive. No small bowel obstruction. Fluid in the multiple small-bowel loops is nonspecific and can be seen with enteritis. The appendix is not definitively seen. The prostate gland measures 5.3 cm transverse. Mild wall thickening of the urinary bladder is nonspecific. Foci of sclerosis are nonspecific. Differential considerations including bone islands, including bilateral proximal femurs. IMPRESSION: 1. No significant celiac axis or proximal SMA stenosis by CT, accounting for artifacts. 2. 9 mm hypervascular nodule is nonspecific in the liver. Please consider short-term follow-up in 3 to 6-month with liver mass imaging. 3. Severe stool burden. No small bowel obstruction. This document has been electronically signed by: Travis Chan MD on 02/07/2025 19:41:01
--- NOTE | ~2025-02-07 | XR_ITS ---
EXAMINATION: XR ABDOMEN KUB CLINICAL INDICATION: abd pain COMPARISON: None available. TECHNIQUE: AP view of the abdomen. FINDINGS: Lower chest demonstrates sternotomy wires and a prosthetic valve. The bowel gas pattern is normal with no evidence of ileus or obstruction. Small enlarged bowel gas is present. No unusual soft tissue calcifications are noted. The bones are unremarkable aside from benign bone island in the right femoral neck. XR/XR KUB IMPRESSION: Nonspecific bowel gas pattern. Electronically signed by: González Mejia MD 02/07/2025 05:02 PM EDT RP
[2025-02-07 12:05] VITALS: BP 123/77; PULSE 77; RESP 14; TEMP 36.8; O2SAT 100; BMI 18.8
--- NOTE | 2025-02-07 12:06 | ED.GENADULT ---
HPI - General Adult General Chief complaint: Abdominal Pain Stated complaint: Abd pain Time Seen by Provider: 02/07/25 16:11 Source: patient Mode of arrival: ambulatory Limitations: language barrier (peruvian creole) History of Present Illness ED Provider: Dr. Menjivar HPI narrative: 34-year-old male old male history of AFib on Coumadin, hypertension, heart valve placement this was performed in [facility] unsure of which one exactly presenting to ER today for evaluation of abdominal pain. Patient stated that it is more so in his epigastric area and also radiates to his bilateral abdomen on the left than right. No nausea or vomiting or diarrhea. Denies any dark stool. Patient's last bowel movement was 3 days ago. He noticed that his bowel movement is irregular. His stool has been harder than usual. No fever. He stated his urine appears to be brighter in color. Related Data Home Medications ?Medication ?Instructions ?Recorded ?Confirmed warfarin 4 mg tablet 4 mg PO DAILY 09/19/24 11/08/24 warfarin 6 mg tablet 6 mg PO DAILY 09/19/24 11/08/24 Previous Rx's ?Medication ?Instructions ?Recorded aspirin 81 mg tablet,delayed 81 mg PO DAILY #90 tabs 09/25/24 release (Adult Low Dose Aspirin) metoprolol tartrate 25 mg tablet 50 mg (2 x 25 mg) PO DAILY #90 tabs 09/25/24 spironolactone 25 mg tablet 25 mg PO DAILY #90 tabs 09/25/24 cetirizine 10 mg tablet 10 mg PO DAILY PRN allergy 12/16/24 symptoms #14 tabs peg 3350-electrolytes 236 240 ml PO Q10M #4,000 mL 02/07/25 gram-22.74 gram-6.74 gram-5.86 gram solution (Golytely) sennosides 8.6 mg capsule (senna) 8.6 mg PO DAILY #14 caps 02/07/25 Allergies Allergy/AdvReac Type Severity Reaction Status Date / Time No Known Allergies Allergy Verified 02/07/25 12:06 Review of Systems Review of Systems: Pertinent review of systems as mentioned in HPI. All other system otherwise negative. [facility] Past Medical History [facility] Narrative: Medical history as mentioned in [facility] Medical History Non-ischemic cardiomyopathy HTN (hypertension) Atrial fibrillation Surgical History Mechanical heart valve present Family History Family History Mother No problems noted. Father No problems noted. Brother No problems noted. Sister No problems noted. Daughter No problems noted. Social History Social History Housing: Homeless ([facility]) Alcohol intake: never Patient Tobacco Use Status: Never used Tobacco Tobacco use type: Cigarette Smoked in Last 30 Days: No e-Cigarette/Vaping Use: Never Used Second Hand Smoke Exposure: No Use of substances other than those prescribed or required for medical reasons: No Advance Directives: No Advance Directives Information Provided: No service: No Current occupational status: unemployed Current occupational exposures/hazards: No Cognitive needs: No Hearing needs: No Vision needs: No Physical Exam ED Exam Exam: General: Pleasant, no distress, interacting appropriately Head: Normacephalic, atraumatic ENT: oral mucosa moist, neck supple, no tracheal deviation Cardiovascular: regular rate, regular rhythm, no murmurs, rubbing, gallops Respiratory: CTAB, no wheeze, rales, rhonchi Gastrointestinal: Abdomen does feel distended around the left side of his colon. Near the sigmoid flexure, he does have tenderness in the epigastric area on exam Neurological: Awake and alert, no facial droop noted Skin: Warm and dry Psychiatric: Appropriate mood and thoughts Vital Signs: Vital Signs - 24 hr 02/07/25 12:05 Temperature 98.2 F Pulse Rate 77 Respiratory Rate 14 Blood Pressure 123/77 Pulse Oximetry 100 Oxygen Delivery Method Room Air BMI result Body Mass Index 18.8 Course Course Course Narrative: This is an RME: Additional HPI, ROS, PE not included below will be deferred to primary provider. RME assessment and note performed by: Ira Burch PA-C This is a 80-owax-eum-[place] Creole male, with a hx of HTN, a fib on Warfarin, cardiomyopathy, who presents to the ER with complaints of abdominal pain, reporting primary in the upper abdomen on both sides. Pain started 3 days ago. No nausea, vomiting, diarrhea or constipation. Rates pain as a 7/10. Plan: Labs, UA, US, further ER eval needed Medications Administered Discontinued Medications Generic Name Dose Route Start Last Admin Trade Name Chiki PRN Reason Stop Dose Admin Al Hydroxide/Mg Hydroxide 30 ml 02/07/25 16:36 02/07/25 17:14 Magnesium Hydrox/Alum Hydrox 30 Ml Oral.Susp PO 02/07/25 16:37 30 ml ONCE ONE Administration Iohexol 100 ml 02/07/25 19:03 02/07/25 19:03 Iohexol 350 Mg/Ml 100 Ml Infus..Btl IV 02/07/25 19:04 80 ml ONCE ONE Administration Lidocaine HCl 15 ml 02/07/25 16:36 02/07/25 17:14 Lidocaine Hcl Viscous 2 % 15 Ml Solution MUCOUS MEM 02/07/25 16:37 15 ml ONCE ONE Administration Medical Decision Making Medical Decision Making [facility] Narrative: 34-year-old male presented hospital today for evaluation of abdominal pain. He has history of AFib mechanical heart valve on Coumadin currently. History of cardiomyopathy. On exam patient does not have acute guarding abdomen or surgical abdomen on exam. He does feel distended on the left Colonic area we will attempt to obtain a KUB to assess his stool burden. We will plan to challenge patient with a GI cocktail to see if this will help with his pain. If his pain remains uncontrolled may consider getting a CT abdomen and pelvis for the patient. To rule out mesenteric ischemia however this lower my differential at this time. Based on my physical exam. Patient does have stool burden on the KUB however patient INR appears to be low at 1.8. We will plan to image the patient's CTA for evaluation for mesenteric ischemia. I review patient's CT results shows constipation. Patient does not have any signs of mesenteric ischemia. We will plan to discharge patient with prescription for GoLYTELY and senna for stool softener. Patient agrees and understands this plan all questions were addressed. [employer] night filler was used for this encounter. Differential Diagnosis Differential Diagnoses: The differential diagnosis associated with the presentation includes Mesenteric ischemia, gastritis, gastroenteritis, colitis, constipation Lab Data [facility] Lab Attestation statement: I reviewed the patient's lab results. 02/07/25 12:35 02/07/25 12:35 Labs: Lab Results 02/07/25 Range/Units 12:35 WBC 3.7 L (4.8-10.8) X10*3/uL RBC 4.39 L (4.60-5.80) X10*6/uL Hgb 14.0 (14.0-18.0) g/dl Hct 40.6 L (42.0-52.0) % MCV 92.5 (80.0-98.0) fL MCH 31.9 (27.0-33.0) pg MCHC 34.5 (31.0-36.0) g/dl RDW 12.1 (11.0-16.0) % Plt Count 186 D (160-400) X10*3/uL MPV 10.2 (9.4-12.4) fL Immature Gran % (Auto) 0.0 (0.0-0.4) % Neut % (Auto) 53.1 (45-73) % Lymph % (Auto) 35.5 (20-40) % [place] % (Auto) 9.5 (2-11) % Eos % (Auto) 1.1 (0-4) % Baso % (Auto) 0.8 (0-2) % Lymph # (Auto) 1.3 (1.2-4.9) X10*3/uL [place] # (Auto) 0.4 (0.1-1.2) X10*3/uL Eos # (Auto) 0.0 (0.0-0.4) X10*3/uL Baso # (Auto) 0.0 (0.0-0.2) X10*3/uL Abs Immat Gran (auto) 0.00 (0.00-0.03) X10*3/uL Absolute Neuts (auto) 2.0 (2.0-8.3) x10*3/uL Absolute Nucleated RBC 0.000 (0.0-0.012) X10*3/uL Nucleated RBC % (auto) 0.0 (0.0-0.2) /100WBC PT 21.9 H D (10.9-12.4) SEC INR 1.9 H (0.9-1.1) Sodium 139 (135-145) mmol/L Potassium 3.9 (3.3-5.1) mmol/L Chloride 109 H (96-108) mmol/L Carbon Dioxide 28 (22-29) mmol/L Anion Gap 6 L (12-20) BUN 16 (9-16) mg/dL Creatinine 0.88 (0.5-1.4) mg/dL Estim Creat Clear Calc 84.0 Estimated GFR > 60 Random Glucose 96 (60-115) mg/dL Calcium 9.2 D (8.4-10.2) mg/dL Magnesium 1.9 (1.6-2.6) mg/dL Total Bilirubin 1.8 H (0.0-1.0) mg/dL Direct Bilirubin 0.5 (0.0-0.5) mg/dL AST 42 H (5-37) U/L ALT 25 (0-40) U/L Alkaline Phosphatase 84 (39-117) U/L Total Protein 7.3 (6.5-8.0) g/dL Albumin 4.4 (3.5-5.0) g/dL Lipase 20 (8-78) U/L Independent Interpretation I performed an independent interpretation of an: CT Scan Radiology Impression Discussion of test interpretation with radiology: I have reviewed the radiologist's reading. Discharge Plan Discharge Clinical Impression: Constipation Qualifiers: Constipation type: unspecified constipation type Qualified Code(s): K59.00 - Constipation, unspecified Patient Disposition: Home, Self-Care Instructions: Constipation (ED) Prescriptions: New senna 8.6 mg capsule 8.6 mg PO DAILY Qty: 14 0RF peg 3350-electrolytes [Golytely] 236-22.74-6.74 -5.86 gram recon soln 240 ml PO Q10M Qty: 4000 0RF Rx Instructions: until fecal effluent is clear No Action aspirin [Adult Low Dose Aspirin] 81 mg tablet,delayed release (DR/EC) 81 mg PO DAILY Qty: 90 3RF metoprolol tartrate 25 mg tablet 50 mg PO DAILY Qty: 90 3RF spironolactone 25 mg tablet 25 mg PO DAILY Qty: 90 3RF cetirizine 10 mg tablet 10 mg PO DAILY PRN (Reason: allergy symptoms) Qty: 14 0RF warfarin 4 mg tablet 4 mg PO DAILY warfarin 6 mg tablet 6 mg PO DAILY Print Language: [place] Creole
[2025-02-07 12:39] LABS: MANUAL DIFF FLAG NO
[2025-02-07 12:40] LABS: Hematocrit 40.6 % (42.0-52.0); Hemoglobin 14.0 g/dl (14.0-18.0); Imm Gran Abs Auto 0.00 X10*3/uL (0.00-0.03); Imm Gran Pct Auto 0.0 % (0.0-0.4); Lymphocytes Absolute Auto 1.3 X10*3/uL (1.2-4.9); Mean Corpuscular HGB Conc 34.5 g/dl (31.0-36.0); Mean Corpuscular Hemoglobin 31.9 pg (27.0-33.0); Mean Corpuscular Volume 92.5 fL (80.0-98.0); NRBC Abs Auto 0.000 X10*3/uL (0.0-0.012); NRBC Pct Auto 0.0 /100WBC (0.0-0.2); Platelet Count 186 X10*3/uL (160-400); Red Blood Count 4.39 X10*6/uL (4.60-5.80); White Blood Count 3.7 X10*3/uL (4.8-10.8)
[2025-02-07 12:50] LABS: INTERNATIONAL NORM RATIO 1.9 (0.9-1.1); Prothrombin Time 21.9 SEC (10.9-12.4)
[2025-02-07 12:54] LABS: Alanine Aminotransferase 25 U/L (0-40); Albumin Level 4.4 g/dL (3.5-5.0); Alkaline Phosphatase 84 U/L (39-117); Anion Gap 6 (12-20); Aspartate Amino Transferase 42 U/L (5-37); Blood Urea Nitrogen 16 mg/dL (9-16); Calcium 9.2 mg/dL (8.4-10.2); Carbon Dioxide 28 mmol/L (22-29); Chloride 109 mmol/L (96-108); Creatinine Clr Calc Pharmacy 84.0; Estimated Glomerular Filt Rate > 60; Lipase 20 U/L (8-78); Magnesium 1.9 mg/dL (1.6-2.6); Potassium 3.9 mmol/L (3.3-5.1); Sodium 139 mmol/L (135-145); Total Protein 7.3 g/dL (6.5-8.0)
[2025-02-07] MEDS: Lidocaine HCl Viscous 2 % 15 ML SOLUTION MUCOUS MEM (17:14)
[2025-02-07] MEDS: Magnesium Hydrox/Alum Hydrox 30 ML ORAL.SUSP PO (17:14)
[2025-02-07] MEDS: iohexoL 350 MG/ML 100 ML INFUS..BTL IV (19:03)
[2025-02-07 20:19] VITALS: BP 132/87; PULSE 74; RESP 16; TEMP 36.3; O2SAT 100
[2025-02-07 20:25] VITALS: BP 132/87; PULSE 74; RESP 16; TEMP 36.3; O2SAT 100
== END 2025-02-07 20:26 | disposition home or self-care (01) ==
PROVIDERS: Physician Assistant Medical; Emergency Provider Student in an Organized Health Care Education/Training Program
DX: K59.00 Constipation, unspecified (principal); R10.9 Unspecified abdominal pain; I48.91 Unspecified atrial fibrillation; I10 Essential (primary) hypertension; Z79.01 Long term (current) use of anticoagulants
CPT/HCPCS: 36415; 74018; 74174; 80048; 80076; 83690; 83735; 85025; 85610; 99284; 99285; Q9967

== ENCOUNTER → 2025-02-07 16:45 | Outpatient (BNV) | payer OTHER, SELFPAY | PROVIDERS: Emergency Provider Student in an Organized Health Care Education/Training Program; Visit Provider Radiology Diagnostic Radiology | DX: R93.2 Abnormal findings on diagnostic imaging of liver and biliary tract (principal) | CPT/HCPCS: 74018; 74174 ==

== ENCOUNTER 2025-02-20 13:31 | Emergency (ER) | payer OTHER, SELFPAY ==
--- NOTE | ~2025-02-20 | US_ITS ---
CLINICAL HISTORY: epigastric pain +alvares sign --- Additional Notes or Special Instructions: look at gb, ducts, liver, pancreas US abdomen limited Comparison: None provided Findings: The visualized pancreas is normal. The aorta and inferior vena cava are normal caliber. The liver is normal in size and echotexture. There is no intrahepatic bile duct dilatation. The common duct is 4 mm in diameter. The gallbladder is normal. There is no sonographic Alvares sign. The main portal vein is antegrade. IMPRESSION: 1. Normal limited abdominal ultrasound. This document has been electronically signed by: Kyaw Cuba MD on 02/20/2025 19:11:21
--- NOTE | ~2025-02-20 | CT_ITS ---
CLINICAL HISTORY: obstipation CT abdomen and pelvis with contrast Comparison: 02/07/2025 Findings: Lung bases clear. No acute bony abnormalities. Liver and spleen within normal limits. Pancreas and adrenal glands unremarkable. Gallbladder is within normal limits. No significant focal renal abnormalities. No renal stones or hydronephrosis. Abdominal aorta is normal in caliber. No free fluid or adenopathy in the pelvis. No diverticulitis. Appendix unremarkable. Impression: No acute process This document has been electronically signed by: Giovany English MD on 02/20/2025 23:04:04
--- NOTE | ~2025-02-20 | XR_ITS ---
CLINICAL HISTORY: abdominal pain ?constipation ?obstruct 1 view abdomen Comparison: CT/SR - CT ANGIO ABDOMEN PELVIS - 02/07/25 18:58 EDT Findings: No pneumoperitoneum or pneumatosis. Significant fecal retention throughout the right colon. No small bowel obstruction or free air. No acute osseous finding. Impression: Significant fecal retention within the right colon. No small bowel obstruction or free air. This document has been electronically signed by: Kyaw Cuba MD on 02/20/2025 17:43:44
[2025-02-20 13:44] VITALS: BP 122/73; PULSE 87; RESP 16; TEMP 36.6; O2SAT 100; BMI 19.4
--- NOTE | 2025-02-20 13:53 | ED.GENADULT ---
HPI - General Adult General Chief complaint: Abdominal Pain Stated complaint: abd pain Time Seen by Provider: 02/20/25 16:04 Source: patient and senior relationship manager (botswanan creole) Mode of arrival: ambulatory Limitations: language barrier ([place] CREO[place]) History of Present Illness ED Provider: CARRIE BOGGS PA-C HPI narrative: 34 year old male significant for atrial fibrillation on Coumadin, HTN, heart valve replacement performed in [place], presents to the ED today for evaluation of abdominal pain x4 days. He reports diffuse lower abdominal pain, described as a burning sensation that radiates to his back, ongoing for over 4 days now. He also reports epigastric pain that began around 2300 last night, lasting approximately 5 hours before resolving. Pain began while he was lying down. It does not seem to correlate with food intake. Patient was seen in ED for similar 1 week ago, diagnosed with constipation and prescribed senna + Golytely which he reports taking with one nonbloody BM 3 days ago. He has not had a bowel movement since. He is passing flatus. He states it is typically normal for him to go a day or 2 without passing a BM. Denies fever, chills, chest pain, palpitations, SOB, nausea, vomiting, diarrhea, urinary symptoms. No history of abdominal surgeries. Related Data Home Medications ?Medication ?Instructions ?Recorded ?Confirmed warfarin 4 mg tablet 4 mg PO DAILY 09/19/24 11/08/24 warfarin 6 mg tablet 6 mg PO DAILY 09/19/24 11/08/24 Previous Rx's ?Medication ?Instructions ?Recorded aspirin 81 mg tablet,delayed 81 mg PO DAILY #90 tabs 09/25/24 release (Adult Low Dose Aspirin) metoprolol tartrate 25 mg tablet 50 mg (2 x 25 mg) PO DAILY #90 tabs 09/25/24 spironolactone 25 mg tablet 25 mg PO DAILY #90 tabs 09/25/24 cetirizine 10 mg tablet 10 mg PO DAILY PRN allergy 12/16/24 symptoms #14 tabs peg 3350-electrolytes 236 240 ml PO Q10M #4,000 mL 02/07/25 gram-22.74 gram-6.74 gram-5.86 gram solution (Golytely) sennosides 8.6 mg capsule (senna) 8.6 mg PO DAILY #14 caps 02/07/25 docusate sodium 100 mg capsule 100 mg PO BID #20 caps 02/20/25 (Colace) polyethylene glycol 3350 17 17 g PO DAILY #238 grams 02/20/25 gram/dose oral powder (Miralax) Allergies Allergy/AdvReac Type Severity Reaction Status Date / Time No Known Allergies Allergy Verified 02/20/25 13:48 Review of Systems Review of Systems: Yes all other systems are reviewed and are negative PMFSH Past Medical History Attestation statement: The following information was validated with the patient. Source: old records reviewed and nursing notes reviewed Medical History Non-ischemic cardiomyopathy HTN (hypertension) Atrial fibrillation Surgical History Mechanical heart valve present Family History Family History Mother No problems noted. Father No problems noted. Brother No problems noted. Sister No problems noted. Daughter No problems noted. Social History Social History Housing: Homeless ([facility]) Alcohol intake: never Patient Tobacco Use Status: Never used Tobacco Tobacco use type: Cigarette e-Cigarette/Vaping Use: Never Used Second Hand Smoke Exposure: No service: No Current occupational status: unemployed Current occupational exposures/hazards: No Cognitive needs: No Hearing needs: No Vision needs: No Physical Exam ED Vital Signs: Vital Signs - 24 hr 02/20/25 13:44 02/20/25 15:29 02/20/25 18:27 Temperature 97.9 F 98.1 F 98.3 F Pulse Rate 87 70 73 Respiratory Rate 16 16 16 Blood Pressure 122/73 125/84 127/80 Pulse Oximetry 100 98 99 Oxygen Delivery Method Room Air Room Air Room Air 02/20/25 20:38 02/20/25 22:28 Temperature 97.9 F Pulse Rate 72 69 Respiratory Rate 16 18 Blood Pressure 130/87 131/79 Pulse Oximetry 99 99 Oxygen Delivery Method Room Air Room Air BMI result Body Mass Index 19.4 Vital signs stable General: Well appearing, in no acute distress. Skin: Warm, dry, intact. No rashes or lesions. Head: Normocephalic, atraumatic. EENT: Hearing is intact b/l. Conjunctiva clear. Sclera is anicteric. PERRLA. EOM intact. Moist mucous membranes.? Cardiac: Chest wall symmetric Lungs: Normal respiratory effort without accessory muscle use Abdomen: soft, nondistended, tender to palpation of epigastric region, positive Alvares's sign, no rebound or guarding, active bowel sounds x4 Back: No midline spinous or paraspinal tenderness. No step off deformity. Ext: Upper and lower extremities atraumatic, without tenderness, deformity, swelling or erythema Neuro: AOx3. Normal speech. Ambulating with steady gait Course Course Course Narrative: Rapid medical examination performed in triage by Herminia Christian PA-C. Patient is a 34 year old assigned male at presenting to the emergency department with abdominal pain. Detailed physical exam and review of systems are deferred to the spotter. Labs ordered. Patient placed back in the waiting room pending room availability and results. Reevaluation(s) Reevaluation #1: CBC showing leukopenia to 4.1, this appears to be around patient's baseline. No anemia, H and H stable. Chemistry without acute electrolyte abnormality requiring intervention. No JANE. tbili elevated to 2, appears to be around patient's baseline. direct bilirubin wnl. troponin wnl. lipase wnl. urine without infection. KUB showing significant fecal retention within the right colon, no small bowel obstruction or free air. Abdominal ultrasound without evidence of acute cholecystitis. CT abdomen/pelvis with oral contrast does not demonstrate bowel obstruction. Scan is unremarkable. > patient is constipated. discussed w/ my attending dr. hunter - recommending miralax + colace with increased water intake. Patient has remained stable throughout ED visit today. Discussed worrisome signs and symptoms and when to return to the ED. All questions answered at this time. Patient is agreeable with disposition and stable for discharge. Medications Administered Discontinued Medications Generic Name Dose Route Start Last Admin Trade Name Freq PRN Reason Stop Dose Admin Diatrizoate Meglum/Diatrizoate Sod 30 ml 02/20/25 22:17 02/20/25 22:17 Diatrizoate Meglumine, Sodium 30 Ml Solution PO 02/20/25 22:18 30 ml ONCE ONE Administration Iohexol 85 ml 02/20/25 22:13 02/20/25 22:14 Iohexol 350 Mg/Ml 100 Ml Infus..Btl IV 02/20/25 22:14 85 ml ONCE ONE Administration Medical Decision Making Medical Decision Making [facility] Narrative: 34 year old male significant for atrial fibrillation on Coumadin, HTN, heart valve replacement performed in [facility] [place], presents to the ED today for evaluation of abdominal pain x4 days. Vital signs stable. He is well-appearing in no acute distress. , abdomen is soft, nondistended, tender to palpation of epigastric region, positive Alvares's sign, no rebound or guarding, active bowel sounds x4 Differential diagnosis includes constipation, bowel obstruction, obstipation, UTI, gastritis, gastroenteritis, cholecystitis, biliary colic, anemia, electrolyte abnormality, ACS, arrhythmia, PUD Plan for labs, UA, repeat KUB, RUQ abd US Differential Diagnosis Differential Diagnoses: The differential diagnosis associated with the presentation includes as above. Admission/Observation Not indicated Lab Data [facility] Lab Attestation statement: I reviewed the patient's lab results. as above. 02/20/25 15:09 02/20/25 15:09 Labs: Lab Results 02/20/25 Range/Units 15:09 WBC 4.1 L (4.8-10.8) X10*3/uL RBC 4.72 (4.60-5.80) X10*6/uL Hgb 14.7 (14.0-18.0) g/dl Hct 44.9 (42.0-52.0) % MCV 95.1 (80.0-98.0) fL MCH 31.1 (27.0-33.0) pg MCHC 32.7 (31.0-36.0) g/dl RDW 11.9 (11.0-16.0) % Plt Count 226 (160-400) X10*3/uL MPV 10.6 (9.4-12.4) fL Immature Gran % (Auto) 0.2 (0.0-0.4) % Neut % (Auto) 43.4 L (45-73) % Lymph % (Auto) 44.6 H (20-40) % [place] % (Auto) 10.3 (2-11) % Eos % (Auto) 1.0 (0-4) % Baso % (Auto) 0.5 (0-2) % Lymph # (Auto) 1.8 (1.2-4.9) X10*3/uL [place] # (Auto) 0.4 (0.1-1.2) X10*3/uL Eos # (Auto) 0.0 (0.0-0.4) X10*3/uL Baso # (Auto) 0.0 (0.0-0.2) X10*3/uL Abs Immat Gran (auto) 0.01 (0.00-0.03) X10*3/uL Absolute Neuts (auto) 1.8 L (2.0-8.3) x10*3/uL Absolute Nucleated RBC 0.000 (0.0-0.012) X10*3/uL Nucleated RBC % (auto) 0.0 (0.0-0.2) /100WBC Sodium 140 (135-145) mmol/L Potassium 4.3 (3.3-5.1) mmol/L Chloride 105 (96-108) mmol/L Carbon Dioxide 27 (22-29) mmol/L Anion Gap 12 (12-20) BUN 10 (9-16) mg/dL Creatinine 0.89 (0.5-1.4) mg/dL Estim Creat Clear Calc 91.2 Estimated GFR > 60 Random Glucose 85 (60-115) mg/dL Calcium 10.0 D (8.4-10.2) mg/dL Magnesium 2.0 (1.6-2.6) mg/dL Total Bilirubin 2.0 H (0.0-1.0) mg/dL Direct Bilirubin 0.5 (0.0-0.5) mg/dL AST 44 H (5-37) U/L ALT 26 (0-40) U/L Alkaline Phosphatase 82 (39-117) U/L Troponin I High Sens 4.2 D (<3.5-35.0) ng/L Total Protein 8.4 H (6.5-8.0) g/dL Albumin 4.8 (3.5-5.0) g/dL Lipase 19 (8-78) U/L Urine Color Yellow Urine Appearance Clear Urine pH 5.5 (5.0-9.0) Ur Specific [place] 1.010 (1.005-1.025) Urine Protein Negative (Neg-Trace) mg/dL Urine Glucose (UA) Negative (Negative) mg/dL Urine Ketones Negative (Negative) mg/dL Urine Blood Negative (Negative) Urine Nitrite Negative (Negative) Ur Leukocyte Esterase Negative (Negative) Independent Interpretation I performed an independent interpretation of an: EKG, Plain X-Ray and Ultrasound Interpretation: ekg showing NSR with rate of 69 bpm KUB showing fecal retention to right hemicolon RUQ us without gallstones CT a/p with oral contrast without obstruction Radiology Impression Discussion of test interpretation with radiology: I have reviewed the radiologist's reading. Radiologist Impression: Procedure(s): CT abdomen pelvis w IV con Accession Number(s): [id number] cc: Carrie Boggs; Oz Christiansen~ Report Number: [id number]: Total DLP = 294.00 mGy-cm Reason for Exam: obstipation CLINICAL HISTORY: obstipation CT abdomen and pelvis with contrast Comparison: 02/07/2025 Findings: Lung bases clear. No acute bony abnormalities. Liver and spleen within normal limits. Pancreas and adrenal glands unremarkable. Gallbladder is within normal limits. No significant focal renal abnormalities. No renal stones or hydronephrosis. Abdominal aorta is normal in caliber. No free fluid or adenopathy in the pelvis. No diverticulitis. Appendix unremarkable. Impression: No acute process This document has been electronically signed by: Giovany English MD on 02/20/2025 23:04:04 Procedure(s): US abdomen limited Accession Number(s): [id number] cc: Carrie Boggs; Oz Christiansen~ Reason for Exam: epigastric pain +alvares sign CLINICAL HISTORY: epigastric pain +alvares sign --- Additional Notes or Special Instructions: look at gb, ducts, liver, pancreas US abdomen limited Comparison: None provided Findings: The visualized pancreas is normal. The aorta and inferior vena cava are normal caliber. The liver is normal in size and echotexture. There is no intrahepatic bile duct dilatation. The common duct is 4 mm in diameter. The gallbladder is normal. There is no sonographic Alvares sign. The main portal vein is antegrade. IMPRESSION: 1. Normal limited abdominal ultrasound. This document has been electronically signed by: Kyaw Cuba MD on 02/20/2025 19:11:21 Date of Service: 02/20/25 Procedure(s): XR KUB Accession Number(s): [id number] cc: Carrie Boggs; Oz Christiansen~ Reason for Exam: abdominal pain ?constipation ?obstruct CLINICAL HISTORY: abdominal pain ?constipation ?obstruct 1 view abdomen Comparison: CT/SR - CT ANGIO ABDOMEN PELVIS - 02/07/25 18:58 EDT Findings: No pneumoperitoneum or pneumatosis. Significant fecal retention throughout the right colon. No small bowel obstruction or free air. No acute osseous finding. Impression: Significant fecal retention within the right colon. No small bowel obstruction or free air. This document has been electronically signed by: Kyaw Cuba MD on 02/20/2025 17:43:44 Independent Historian Clinical information obtained from an independent historian. History obtained from or confirmed by: Spouse External Record Review External record reviewed: Inpatient record Prescription Management I considered prescription management with: Other (Colace, MiraLax) Social Determinants Patient?s care significantly limited by Social Determinants of Health including: Other Social Determinant of Health Critical Care Time Critical Care Time Critical Care Time: No Discharge Plan Discharge Clinical Impression: Constipation Patient Disposition: Home, Self-Care Instructions: Constipation (ED) Additional Instructions: Your lab work up today is unremarkable. Your imaging shows that you are constipated. See home care intructions. There is no evidence of obstruction. I recommend using stool softeners such as colace 100 mg twice daily. In addition, take over the counter miralax 2-3 times daily until you begin having multiple large volume bowel movements. Please make sure you are drinking enough water. Follow up with your doctor in 2 weeks. Return with new or worsening symptoms. In the case of an emergency call 911. Prescriptions: New polyethylene glycol 3350 [Miralax] 17 gram/dose powder 17 g PO DAILY Qty: 238 0RF docusate sodium [Colace] 100 mg capsule 100 mg PO BID Qty: 20 0RF No Action aspirin [Adult Low Dose Aspirin] 81 mg tablet,delayed release (DR/EC) 81 mg PO DAILY Qty: 90 3RF metoprolol tartrate 25 mg tablet 50 mg PO DAILY Qty: 90 3RF spironolactone 25 mg tablet 25 mg PO DAILY Qty: 90 3RF cetirizine 10 mg tablet 10 mg PO DAILY PRN (Reason: allergy symptoms) Qty: 14 0RF senna 8.6 mg capsule 8.6 mg PO DAILY Qty: 14 0RF peg 3350-electrolytes [Golytely] 236-22.74-6.74 -5.86 gram recon soln 240 ml PO Q10M Qty: 4000 0RF Rx Instructions: until fecal effluent is clear warfarin 4 mg tablet 4 mg PO DAILY warfarin 6 mg tablet 6 mg PO DAILY Referrals: Oz Crhistiansen FNP-C [Primary Care Provider, Internal Medicine] Interventions: ED Discharge Assessment Last Done: 02/21/25 00:01 Discharge Date/Time: 02/21/25 00:03 Print Language: Ruby Alberto
[2025-02-20 15:14] LABS: MANUAL DIFF FLAG NO
[2025-02-20 15:18] LABS: Appearance Urine Clear; Glucose Urine UA Negative (Negative); PH 5.5 (5.0-9.0); Specific Gravity - Urine 1.010 (1.005-1.025)
[2025-02-20 15:29] VITALS: BP 125/84; PULSE 70; RESP 16; TEMP 36.7; O2SAT 98
[2025-02-20 15:40] LABS: Alanine Aminotransferase 26 U/L (0-40); Albumin Level 4.8 g/dL (3.5-5.0); Alkaline Phosphatase 82 U/L (39-117); Anion Gap 12 (12-20); Aspartate Amino Transferase 44 U/L (5-37); Blood Urea Nitrogen 10 mg/dL (9-16); Calcium 10.0 mg/dL (8.4-10.2); Carbon Dioxide 27 mmol/L (22-29); Chloride 105 mmol/L (96-108); Creatinine Clr Calc Pharmacy 91.2; Estimated Glomerular Filt Rate > 60; Hematocrit 44.9 % (42.0-52.0); Hemoglobin 14.7 g/dl (14.0-18.0); Imm Gran Abs Auto 0.01 X10*3/uL (0.00-0.03); Imm Gran Pct Auto 0.2 % (0.0-0.4); Lymphocytes Absolute Auto 1.8 X10*3/uL (1.2-4.9); Magnesium 2.0 mg/dL (1.6-2.6); Mean Corpuscular HGB Conc 32.7 g/dl (31.0-36.0); Mean Corpuscular Hemoglobin 31.1 pg (27.0-33.0); Mean Corpuscular Volume 95.1 fL (80.0-98.0); NRBC Abs Auto 0.000 X10*3/uL (0.0-0.012); NRBC Pct Auto 0.0 /100WBC (0.0-0.2); Platelet Count 226 X10*3/uL (160-400); Potassium 4.3 mmol/L (3.3-5.1); Red Blood Count 4.72 X10*6/uL (4.60-5.80); Sodium 140 mmol/L (135-145); Total Protein 8.4 g/dL (6.5-8.0); White Blood Count 4.1 X10*3/uL (4.8-10.8)
--- NOTE | 2025-02-20 16:24 | ECG_ITS ---
Test Reason : EPIGASTRIC PAIN Blood Pressure : */* mmHG Vent. Rate : 69 BPM Atrial Rate : 69 BPM P-R Int : 148 ms QRS Dur : 74 ms QT Int : 386 ms P-R-T Axes : 89 43 61 degrees QTcB Int : 413 ms Normal sinus rhythm Possible Left atrial enlargement Borderline ECG When compared with ECG of 17-Jun-2024 08:23, Sinus rhythm has replaced Atrial fibrillation Vent. rate has decreased by 45 bpm Referred By: Carrie Boggs Electronically Signed By: HELDER ELLSWORTH
[2025-02-20 17:16] LABS: Lipase 19 U/L (8-78)
--- NOTE | 2025-02-20 17:18 | PC.NURSE ---
Patient is a 34 male [place]og[place] Creole speaking with significant past medical history of mechanical heart valve, HTN, afib on Coumadin who presents for second visit regarding his constipation. Patient was given medication on his first visit but returns with continued constipation. Respirations even and non-labored. Abdomen soft, flat, non-tender with positive bowel sounds. Denies N/V
[2025-02-20 17:22] LABS: Troponin-I High Sensitivity 4.2 ng/L (<3.5-35.0)
[2025-02-20 18:27] VITALS: BP 127/80; PULSE 73; RESP 16; TEMP 36.8; O2SAT 99
[2025-02-20 20:38] VITALS: BP 130/87; PULSE 72; RESP 16; TEMP 36.6; O2SAT 99
[2025-02-20] MEDS: iohexoL 350 MG/ML 100 ML INFUS..BTL 85 ML IV (22:14)
[2025-02-20 22:28] VITALS: BP 131/79; PULSE 69; RESP 18; O2SAT 99
[2025-02-21 00:01] VITALS: BP 109/72; PULSE 82; RESP 18; TEMP 36.6; O2SAT 99
== END 2025-02-21 00:03 | disposition home or self-care (01) ==
PROVIDERS: Physician Assistant Medical; Emergency Provider Student in an Organized Health Care Education/Training Program
DX: K59.00 Constipation, unspecified (principal); I48.91 Unspecified atrial fibrillation; I10 Essential (primary) hypertension; Z79.01 Long term (current) use of anticoagulants; Z95.2 Presence of prosthetic heart valve; Z79.899 Other long term (current) drug therapy
CPT/HCPCS: 36415; 74018; 74177; 76705; 80053; 81003; 82248; 83690; 83735; 84484; 85025; 93005; 99285; Q9967

== ENCOUNTER → 2025-02-20 16:23 | Outpatient (BNV) | payer OTHER, SELFPAY | PROVIDERS: Emergency Provider Student in an Organized Health Care Education/Training Program; Visit Provider Radiology Vascular & Interventional Radiology | DX: R10.13 Epigastric pain (principal); R19.8 Other specified symptoms and signs involving the digestive system and abdomen; K59.00 Constipation, unspecified; R10.9 Unspecified abdominal pain | CPT/HCPCS: 74018; 74177; 76705 ==

== ENCOUNTER → 2025-02-20 16:24 | Outpatient (BNV) | payer OTHER, SELFPAY | PROVIDERS: Emergency Provider Student in an Organized Health Care Education/Training Program; Visit Provider Internal Medicine | DX: R10.13 Epigastric pain (principal) | CPT/HCPCS: 93010 ==

== ENCOUNTER 2025-03-10 08:47 | Outpatient (REF) | payer OTHER, SELFPAY ==
[2025-03-10 10:34] LABS: MANUAL DIFF FLAG NO
[2025-03-10 11:02] LABS: Hematocrit 45.3 % (42.0-52.0); Hemoglobin 15.2 g/dl (14.0-18.0); Imm Gran Abs Auto 0.00 X10*3/uL (0.00-0.03); Imm Gran Pct Auto 0.0 % (0.0-0.4); Lymphocytes Absolute Auto 1.0 X10*3/uL (1.2-4.9); Mean Corpuscular HGB Conc 33.6 g/dl (31.0-36.0); Mean Corpuscular Hemoglobin 31.8 pg (27.0-33.0); Mean Corpuscular Volume 94.8 fL (80.0-98.0); NRBC Abs Auto 0.000 X10*3/uL (0.0-0.012); NRBC Pct Auto 0.0 /100WBC (0.0-0.2); Platelet Count 189 X10*3/uL (160-400); Red Blood Count 4.78 X10*6/uL (4.60-5.80); White Blood Count 3.0 X10*3/uL (4.8-10.8)
[2025-03-10 11:07] LABS: Appearance Urine Clear; Glucose Urine UA Negative (Negative); PH 5.5 (5.0-9.0); Specific Gravity - Urine 1.015 (1.005-1.025); UMIC TRIGGER UACC YES
[2025-03-10 13:04] LABS: Alanine Aminotransferase 22 U/L (0-40); Albumin Level 4.8 g/dL (3.5-5.0); Alkaline Phosphatase 77 U/L (39-117); Anion Gap 13 (12-20); Aspartate Amino Transferase 40 U/L (5-37); Blood Urea Nitrogen 9 mg/dL (9-16); Calcium 9.9 mg/dL (8.4-10.2); Carbon Dioxide 26 mmol/L (22-29); Chloride 105 mmol/L (96-108); Estimated Glomerular Filt Rate > 60; Potassium 4.5 mmol/L (3.3-5.1); Sodium 139 mmol/L (135-145); Total Protein 8.3 g/dL (6.5-8.0)
[2025-03-10 15:18] LABS: Gamma Glutamyl Transpeptidase 61 U/L (11-51)
== END 2025-03-10 08:48 | disposition home or self-care (01) ==
LOC: HO.LAB 08:47
DX: Z00.00 Encounter for general adult medical examination without abnormal findings (principal); I48.91 Unspecified atrial fibrillation; R74.8 Abnormal levels of other serum enzymes; R17 Unspecified jaundice; I10 Essential (primary) hypertension; I42.8 Other cardiomyopathies; Z95.2 Presence of prosthetic heart valve; Z79.82 Long term (current) use of aspirin; Z79.01 Long term (current) use of anticoagulants; Z79.899 Other long term (current) drug therapy
CPT/HCPCS: 36415; 80053; 81001; 81003; 82306; 82977; 84443; 85025; 99212

== ENCOUNTER 2025-03-10 08:47 | Outpatient (AMB) | payer OTHER, SELFPAY ==
[2025-03-10 08:51] VITALS: BP 118/82; PULSE 113; RESP 18; O2SAT 96; BMI 17.6
--- NOTE | 2025-03-10 08:51 | A.OFFPC_ITS ---
Vital Signs 03/10/25 08:51 Height 5 ft 7 in Weight 112 lb 8 oz BMI 17.6 BP 118/82 Blood Pressure Location Lt brachial Position Sitting Respiration 18 Pulse 113 H Pulse Source Pulse Oximeter Temp Source Temporal Artery Scan Pulse Oximetry (%) 96 Oxygen Delivery Method Room Air Intake Visit Reasons: afib/htn Intake Note: 77161 Take Out Waiter/Waitress Required: Yes Take Out Waiter/Waitress Name: [id number] Accompanied by: Self / Same As Patient Allergies No Known Allergies Allergy (Verified 03/10/25 09:53) Medication List - Last Reconciled 03/10/25 by MICHAEL Smith aspirin (Adult Low Dose Aspirin) 81 mg PO DAILY cetirizine 10 mg PO DAILY PRN docusate sodium (Colace) 100 mg PO BID metoprolol tartrate 50 mg (2 x 25 mg) PO DAILY peg 3350-electrolytes 236-22.74-6.74 -5.86 gram (Golytely) 240 mL PO Q10M polyethylene glycol 3350 (Miralax) 17 grams PO DAILY spironolactone 25 mg PO DAILY warfarin 6 mg PO DAILY warfarin 4 mg PO DAILY Tobacco use date assessed: 03/10/25 Dental Screening Dental Screen Date: 03/10/25 Did you have a dental visit in the last 12 months?: Yes Did you have a dental problem in the last 6 months where you did not have access to dental care?: No Was dental information given to patient?: Patient has dentist HPI afib/htn HPI Details The patient is a 34-year-old Indian Creole speaking male presenting follow up appointment. Significant past medical history of atrial fibrillation on Coumadin, nonischemic cardiomyopathy,htn, mechanical valve present Take Out Waiter/Waitress used via IPAP Per chart review the patient went to the emergency room recently for constipation. He has ongoing anticoagulation management at [facility]. The patient recently visited the emergency room due to constipation, which has since improved with daily bowel movements and no current pain. He was advised to increase water intake and use MiraLax, which he has been taking as a powder mixed with water or juice. Regarding anticoagulation management, the patient is on Warfarin (Coumadin) therapy and recently visited the Coumadin clinic. He reported issues with medication pickup, specifically not receiving the prescribed Warfarin, and was advised to contact the clinic for clarification. The patient also mentioned a change in medication dosage from 25 mg and 50 mg to 100 mg, which was not prescribed by the current provider but possibly by the nuclear worker technician. Patient denies chest pain, shortness of breath, heart palpitation or dizziness Denies abdominal pain or change in bowel habits Denies any urinary symptoms Has not completed ordered labs as yet-reports that he will go after this appointment can he has not eat or drink anything this morning [facility] Medical History Non-ischemic cardiomyopathy HTN (hypertension) Atrial fibrillation Surgical History Mechanical heart valve present Family History Mother No problems noted. Father No problems noted. Brother No problems noted. Sister No problems noted. Daughter No problems noted. Social History Housing: Homeless ([facility]) Alcohol intake: never Patient Tobacco Use Status: Never used Tobacco Tobacco use type: Cigarette e-Cigarette/Vaping Use: Never Used Second Hand Smoke Exposure: No service: No Current occupational status: unemployed Current occupational exposures/hazards: No Cognitive needs: No Hearing needs: No Vision needs: No Questionnaire Thrive Questionnaire Date Thrive assessed: 09/19/24 I am a: Patient What is your living situation today?: I do not have a steady places to live I am staying at a snf Within the past 12 months, did the food you bought not last and you didn't have the money to get more?: I choose not to answer this question Within the past 12 months, did you worry whether your food would run out before you got money to buy more?: I choose not to answer this question Do you have trouble paying for medicines?: No Do you have trouble getting transportation to medical appointments?: No Do you have trouble paying your heating and electricity bill?: I choose not to answer this question Do you have trouble taking care of your child, family member or friend?: I choose not to answer this question Do you have trouble with day-to-day activities such as bathing, preparing meals, shopping, managing finances, etc.?: No Are you currently unemployed and looking for a job?: Yes Are you interested in more education?: Yes Please select the resources that you would like help with: Job search/training Currently or been in a relationship where the following occur: I choose not to answer THRIVE Score: 1 REN-7 AMB Questionnaire REN-7 Date REN - 7 assessed: 09/19/24 Source: Developed by Drs. Feliciano Lopes, Ninfa Osorio, Niko Smith and colleagues, with an educational lourdes from [employer]. Review of Systems Const Denies body aches, Denies chills, Denies fever(s), Denies headache(s) and Denies poor appetite Eyes Reports no additional complaints ENT Denies dysphagia, Denies dizziness, Denies headache(s) and Denies odynophagia Card Denies chest pain, Denies syncope, Denies edema, Denies irregular heart rhythm, Denies lightheadedness and Denies dyspnea Resp Denies cough and Denies dyspnea GI Denies abdominal pain, Denies constipation, Denies dysphagia, Denies diarrhea, Denies nausea, Denies odynophagia and Denies vomiting Reports no additional complaints Musc Reports no additional complaints and Denies abnormal gait Skin/Breast Reports system reviewed and no additional complaints, except as documented Neuro Denies abnormal gait, Denies dizziness, Denies syncope and Denies headache(s) Psych Reports no additional complaints Physical exam (Primary Care) Vital Signs: Last Vital Signs Pulse 113 H 03/10/25 08:51 Resp 18 03/10/25 08:51 BP 118/82 03/10/25 08:51 Pulse Ox 96 03/10/25 08:51 Oxygen Delivery Method Room Air 03/10/25 08:51 BMI result Body Mass Index 17.6 Tobacco/Smoking Status: Tobacco use Status Tobacco use date assessed 03/10/25 03/10/25 09:05 Patient Tobacco Use Status Never used Tobacco 03/10/25 09:05 Tobacco use type Cigarette 03/10/25 09:05 e-Cigarette/Vaping Use Never Used 03/10/25 09:05 Thrive Assessment: Date of Thrive Assessment Date Thrive assessed 09/19/24 03/10/25 09:05 Currently or been in a relationship where the following occur: I choose not to answer Const General: cooperative, healthy appearing, comfortable and no acute distress Orientation/consciousness: patient oriented x3 HENMT Head: Yes normocephalic Ears: hearing grossly normal bilaterally General nose exam: Normal external nose present Eyes General: appearance normal, both eyes and all related structures Conjunctivae: conjunctivae normal Neck Neck: Yes full ROM and Yes no lymphadenopathy Resp Effort & Inspection: normal respiratory effort Auscultation: clear to auscultation bilaterally, no crackles, no rales, no rhonchi and no wheezes Cardio Rate: tachycardic Rhythm: abnormal rhythm irregularly irregular Heart sounds: S1 normal heart sound present and S2 normal heart sound present Skin General skin exam: no rashes or lesions noted Neuro General: patient oriented x3 Gait exam (Neuro): Normal gait present Extrem General: Yes normal to inspection, Yes full ROM and No edema Psych Affect: normal affect Attitude: cooperative Insight: Good insight present (Psych) Judgement: Good judgement present (Psych) Coding Level of Care Code Est Pt Level 4 (92829) Diagnoses Atrial fibrillation, unspecified type I48.91 Atrial fibrillation type: unspecified Mechanical heart valve present Z95.2 Hypertension, unspecified type I10 Hypertension type: unspecified Non-ischemic cardiomyopathy I42.8 Elevated liver enzymes R74.8 Elevated bilirubin R17 Time Spent (min) 36 Assessment & Plan Assessment & Plan (1) Atrial fibrillation: Code(s): I48.91 - Unspecified atrial fibrillation Category: Medical Qualifiers: Atrial fibrillation type: unspecified Qualified Code(s): I48.91 - Unspecified atrial fibrillation Plan: Patient has a history of AFib. Rate uncontrolled, but blood pressure is 118/82. He is currently on metoprolol tartrate 50 mg, Coumadin per order. The patient is asymptomatic. No interventions added. Follow up with Cardiology as scheduled (2) Mechanical heart valve present: Code(s): Z95.2 - Presence of prosthetic heart valve Category: Surgical Plan: History of mechanical valve. Continue warfarin as ordered Follow up with Coumadin clinic as scheduled (3) HTN (hypertension): Code(s): I10 - Essential (primary) hypertension Category: Medical Qualifiers: Hypertension type: unspecified Qualified Code(s): I10 - Essential (pr imary) hypertension Plan: Reinforced low-salt diet Continue metoprolol tartrate 50 mg daily, spironolactone 25 mg daily (4) Non-ischemic cardiomyopathy: Code(s): I42.8 - Other cardiomyopathies Category: Medical Plan: Recent echo showed normal function mitral valve with mean gradient 3 mm Hg at 75 bpm with no evidence of MR. Moderate global hypokinesis of the left ventricle with LVEF of 35-40% Continue spironolactone 25 mg daily and metoprolol tartrate 50 mg daily Follow up with Cardiology as scheduled (5) Elevated liver enzymes: Code(s): R74.8 - Abnormal levels of other serum enzymes Category: Medical Plan: Patient liver enzymes were elevated on his previous labs in May. He has not completed his preordered labs as yet. Encouraged limit Tylenol/limit alcohol/use (6) Elevated bilirubin: Code(s): R17 - Unspecified jaundice Category: Medical Plan: Will add GGT preordered to further evaluate Orders: Orders Gamma Glutamyl Transpeptidase 03/10/25 R17 - Unspecified jaundice, R74.8 - Abnormal levels of other serum enzymes Medications: Refilled polyethylene glycol 3350 (Miralax) 17 grams PO DAILY 238 grams 3RF spironolactone 25 mg PO DAILY 90 tabs 3RF metoprolol tartrate 50 mg (2 x 25 mg) PO DAILY 90 tabs 3RF
== END 2025-03-10 09:55 | disposition home or self-care (01) ==
LOC: HO.HMCH 08:48
DX: I48.91 Unspecified atrial fibrillation (principal); Z95.2 Presence of prosthetic heart valve; I10 Essential (primary) hypertension; I42.8 Other cardiomyopathies; R74.8 Abnormal levels of other serum enzymes; R17 Unspecified jaundice